=== PATIENT | male | born 1995 | race Two or more races ===

== ENCOUNTER 2023-06-15 12:47 | Outpatient (AMB) | payer OTHER, SELFPAY ==
--- NOTE | 2023-06-15 13:06 | MHC.OFFVIS ---
Intake Intake Visit Reasons: possible stone/hematuria Intake Note: New Patient presents for initial visit for possible stone/hematuria Urology Medications: none Blood Thinner: none Personnel Research Psychologist Required: No Accompanied by: Unknown Allergies No Known Allergies Allergy (Verified 06/17/23 16:53) Medication List - Last Reconciled 06/17/23 by JUSTIN Rondon lisinopril 5 mg PO DAILY testosterone 40.5 mg topical QAM HPI HPI Comments History of Present Illness Details Kam is a very pleasant 28-year-old XX male with no gender affirming genital surgery who was accompanied by his significant other at today's office visit. He has a past medical history of hypertension. He presents to the office today as a new patient for gross hematuria. In discussion with the patient today reports noting over the last 2 years to be having intermittent episodes of right-sided flank pain with episodes of dark urine. He reports having followed up with PCP and multiple hospital visits for this exact issue at which time bedside renal ultrasounds were performed noting no nephrolithiasis. When asked he denies smoking cigarettes/nicotine and or any known chemical exposure. However, does report smoking recreational marijuana daily. Discussed at length potential causes for gross hematuria. Discussed further workup with CT urogram, urine cytology, and in office cystoscopy for further assessment evaluation. Discussed risks and benefits of surveillance monitoring verses further workup. In office urinalysis with 3+ microscopic hematuria as well as proteinuria. When asked he denies urinary urgency, urinary frequency, incontinence, nocturia, hematuria, dysuria, foul smelling urine, changes to urinary stream, flank pain, fever, and or chills. He is happy with his current voiding parameters. [facility] Medical History (Updated 06/17/23 @ 17:00 by JUSTIN Rondon) History of kidney stones Hypertension Review of Systems Const Reports as per HPI Eyes Reports no additional complaints ENT Reports no additional complaints Card Reports as per HPI Resp Reports no additional complaints GI Reports no additional complaints Reports as per HPI Musc Reports no additional complaints Neuro Reports no additional complaints Psych Reports no additional complaints Endo Reports no additional complaints Josesito/Lymph Reports no additional complaints Aller/Immun Reports no additional complaints Physical Exam Const General: cooperative, healthy appearing, comfortable, no acute distress, well developed, alert and awake Nutritional Appearance: overweight Orientation/consciousness: patient oriented x3 Limitations: no limitations HEENT Head: Yes normal to inspection, Yes normocephalic and Yes atraumatic Ears: hearing grossly normal bilaterally Eyes General: appearance normal, both eyes and all related structures Neck Neck: Yes normal visual inspection and Yes trachea midline Chest Chest palpation & inspection: normal inspection of the chest Resp Effort & Inspection: normal respiratory effort and able to speak in complete sentences Cardio Rate: regular rate GI Inspection: Yes normal to inspection General: Yes no CVA tenderness Back/Spine/Pelvis Back: no CVA tenderness Skin General skin exam: no rashes or lesions noted Neuro General: patient oriented x3 Extrem General: Yes normal to inspection Psych Appearance: grossly normal and well kempt Mental Status: mental status grossly normal Speech and movement: Normal speech and movement present and Clear speech present Affect: normal affect Attitude: cooperative Thought process: Normal thought process present Thought content: Normal thought content present Insight: Fair insight present (Psych) Judgement: Fair judgement present (Psych) Results AMB Urinalysis, Automated UA Leukoctes 0 Vince/uL Last Edit by [employer] on 06/15/23 13:35 UA Nitrite Negative Last Edit by [employer] on 06/15/23 13:35 UA Urobilinogen 0.2 mg/dL Last Edit by [employer] on 06/15/23 13:35 UA Protein 300 mg/dL Last Edit by [employer] on 06/15/23 13:35 UA pH 5.5 Last Edit by [employer] on 06/15/23 13:35 UA Blood 200 Beau/uL Last Edit by [employer] on 06/15/23 13:35 UA Specific Baisden 1.025 Last Edit by [employer] on 06/15/23 13:35 UA Ketone Negative Last Edit by [employer] on 06/15/23 13:35 UA Bilirubin 0 mg/dL Last Edit by [employer] on 06/15/23 13:35 UA Glucose 0 mg/dL Last Edit by [employer] on 06/15/23 13:35 Results Reviewed Results Reviewed: Laboratory Last Values Urine pH (Auto) 5.5 06/15/23 13:13 Specific [place] (Auto) 1.025 06/15/23 13:13 Urine Protein (Auto) 300 mg/dL 06/15/23 13:13 Glucose (UA)(Auto) 0 mg/dL 06/15/23 13:13 Urine Ketones (Auto) Negative 06/15/23 13:13 Urine Blood (Auto) 200 Beau/uL 06/15/23 13:13 Urine Nitrite (Auto) Negative 06/15/23 13:13 Urine Bilirubin (Auto) 0 mg/dL 06/15/23 13:13 Urine Urobilinogen (Auto) 0.2 mg/dL 06/15/23 13:13 Leukocyte Esterase (Auto) 0 Vince/uL 06/15/23 13:13 Assessment & Plan Assessment & Plan (1) Proteinuria: Code(s): R80.9 - Proteinuria, unspecified (2) Gross hematuria: Code(s): R31.0 - Gross hematuria Plan In office urinalysis results reviewed with the patient today; as noted above; will send for urine cytology. Will obtain CT urogram for further assessment evaluation. BUN and creatinine ordered for imaging. Discussed at length potential causes of gross hematuria. Will refer to Nephrology due to 3+ proteinuria for further assessment evaluation. Discussed at length further gross hematuria workup versus surveillance monitoring. Discussed and stressed the importance of limiting/quitting recreational marijuana for overall health and well-being. Discussed, educated, encouraged on the importance of drinking plenty of water daily. Follow-up in office cystoscopy for further assessment evaluation with labs and imaging to be completed prior; or sooner with any issues, concerns, and or questions. Orders: Orders CT urogram 06/15/23 R31.0 - Gross hematuria Blood Urea Nitrogen 06/15/23 R39.15 - Urgency of urination Urine Cytology 06/15/23 R80.9 - Proteinuria, unspecified AMB Urinalysis Automated 06/15/23 Z13.9 - Encounter for screening, unspecified Creatinine 06/15/23 R39.15 - Urgency of urination Referrals Nephrology Referral R80.9 - Proteinuria, unspecified Patient Instructions: The patient had an opportunity to ask questions regarding the treatment plan. All questions were answered. Physical exam, labs, and imaging were discussed and reviewed in detail. As well as risks, benefits, and discussion of treatment choices. No major barriers to understanding were identified. The patient expressed understanding and agreement with the above treatment plan. The patient was made aware they should contact our office by phone for worsening of their current condition, the appearance of new symptoms, or with any questions or concerns. Compliance is encouraged with any medications and follow up testing that is ordered. It is a privilege to be allowed the opportunity to participate in? your urological care.? Again, if you have any questions or concerns If you have any questions or concerns please do not hesitate to contact me. The office is [phone]. This note is constructed using voice recognition software. While every effort has been made to ensure accuracy gas station attendant errors may have been included. Yours sincerely, JUSTIN Rondon Coding Level of Care Code New Pt Level 4 (82150) Diagnoses Proteinuria R80.9 Gross hematuria R31.0
== END 2023-06-15 13:53 | disposition home or self-care (01) ==
PROVIDERS: Visit Provider Nurse Practitioner Family
DX: R80.9 Proteinuria, unspecified (principal); R31.0 Gross hematuria
CPT/HCPCS: 99204

== ENCOUNTER 2023-06-15 12:47 | Outpatient (REF) | payer OTHER, SELFPAY | END 2023-06-15 12:48 | disposition home or self-care (01) | LOC: HO.LAB 12:47 | PROVIDERS: Visit Provider Nurse Practitioner Family | DX: R39.15 Urgency of urination (principal); R80.9 Proteinuria, unspecified; R31.0 Gross hematuria | CPT/HCPCS: 36415; 81003; 82565; 84520 ==

== ENCOUNTER 2023-06-15 14:35 | Outpatient (REF) | payer OTHER, SELFPAY | END 2023-06-15 14:36 | disposition home or self-care (01) | LOC: HO.LNP 14:35 | PROVIDERS: Visit Provider Nurse Practitioner Family | DX: R80.9 Proteinuria, unspecified (principal) | CPT/HCPCS: 88112 ==

== ENCOUNTER 2023-07-05 11:09 | Outpatient (AMB) | payer OTHER, SELFPAY ==
--- NOTE | 2023-07-05 11:09 | HO.NEPHOV ---
HPI HPI Comments History of Present Illness Details Kam is 28-year -old , with no gen jeremías affirming vanessa césar surgery who wa s accompanied by h is significant oth er at today's offi ce visit. REferr ed for HEmaturia HE has had back pa rustam nd seen in ED Suspected to have kidney stone. No s tones seen in [facility] Seen by Urology fo r hematuria Schedu led for a CT Urogr am He has a hist ory of hypertensio n since 2017; HE i son Lisinopril 5 mg QD He is on T estosterone. ove r the last 2 years to be having inte rmittent episodes of right-sided fla nk pain with episo ezio of dark urine. He reports having followed up with PCP and multiple h ospital visits for this exact issue at which time beds joy renal ultrasou nds were performed noting no nephrol ithiasis. When ask ed he denies smoki ng cigarettes/leonard aurelio and or any kn own chemical expos ure. However, does report smoking re creational marijua na daily. [facility] Medical History (Updated 06/17/23 @ 17:00 [facility] History of kidney stones Hypertension Family History (Updated 07/05/23 @ 11:13 by Eva Spangler) Mother Heart disease Diabetes Maternal Grandfather Diabetes Heart disease Kidney disease Social History Alcohol intake: never Patient Tobacco Use Status: Never used Tobacco Vital Signs 07/05/23 11:10 Height 5 ft 9 in Weight 269 lb BMI 39.7 BP 130/82 Blood Pressure Location Lt brachial Position Sitting Pulse 77 Pulse Source Pulse Oximeter Pulse Oximetry (%) 97 Oxygen Delivery Method Room Air Physical Exam Vital Signs: Last Vital Signs Pulse 77 07/05/23 11:10 BP 130/82 07/05/23 11:10 Pulse Ox 97 07/05/23 11:10 Oxygen Delivery Method Room Air 07/05/23 11:10 BMI result Body Mass Index 39.7 Const General: comfortable Nutritional Appearance: well nourished Orientation/consciousness: patient oriented x3 HEENT Head: No normal to inspection Mouth: moist mucous membranes Neck Neck: Yes supple and Yes no JVD Resp Auscultation: clear to auscultation bilaterally, no rales and rub present Cardio Jugular venous distension: no JVD Palpation: no palpable S3 and no palpable S4 Heart sounds: no rubs GI Palpation (GI): Soft to palpation and nontender Percussion: No Fluid wave present General: Yes no CVA tenderness Back/Spine/Pelvis Back: no CVA tenderness Skin General skin exam: no rashes or lesions noted Neuro General: patient oriented x3 Extrem General: Yes no pedal edema and No clubbing Assessment & Plan Assessment & Plan (1) Gross hematuria: Code(s): R31.0 - Gross hematuria (2) Proteinuria: Code(s): R80.9 - Proteinuria, unspecified Plan Kam is 28 yrsold with Hematuria and some proteinuria with normal renal function Mild HTN in a setting of using Testosterone and obesity Work up ordered as below r/o GN Await CT scan If Ct is negative, need to look for other causes for back pain Orders: Orders Oxalate, 24 Hr Today R31.0 - Gross hematuria, R80.9 - Proteinuria, unspecified Calcium, 24 Hr Ur Today R31.0 - Gross hematuria, R80.9 - Proteinuria, unspecified Citric Acid 24hr Urine Today R31.0 - Gross hematuria, R80.9 - Proteinuria, unspecified Total Protein Urine Random Today R31.0 - Gross hematuria, R80.9 - Proteinuria, unspecified Vitamin D 25-OH (D2 and D3) Today R31.0 - Gross hematuria, R80.9 - Proteinuria, unspecified Protein Electrophoresis, Serum Today R31.0 - Gross hematuria, R80.9 - Proteinuria, unspecified Complement C3 Today R31.0 - Gross hematuria, R80.9 - Proteinuria, unspecified Anti Glomerular Basement Memb Today R31.0 - Gross hematuria, R80.9 - Proteinuria, unspecified CONNOR Reflex Titer and Pattern Today R31.0 - Gross hematuria, R80.9 - Proteinuria, unspecified Sodium, 24Hr Urine Group Today R31.0 - Gross hematuria, R80.9 - Proteinuria, unspecified Creatinine, 24 Hr Group Today R31.0 - Gross hematuria, R80.9 - Proteinuria, unspecified Uric Acid, 24Hr Urine Group Today R31.0 - Gross hematuria, R80.9 - Proteinuria, unspecified UA and rflx microscopic Today R31.0 - Gross hematuria, R80.9 - Proteinuria, unspecified Creatinine Urine Today R31.0 - Gross hematuria, R80.9 - Proteinuria, unspecified Complement C4 Today R31.0 - Gross hematuria, R80.9 - Proteinuria, unspecified Neutrophil Cytoplasma Ab Today R31.0 - Gross hematuria, R80.9 - Proteinuria, unspecified Coding Level of Care Code New Pt Level 4 (55200) Diagnoses Gross hematuria R31.0 Proteinuria R80.9 Results Reviewed Nephrology Results: BUN 14 mg/dL (9-16) 06/15/23 Creatinine 0.77 mg/dL (0.5-1.4) 06/15/23
[2023-07-05 11:10] VITALS: BP 130/82; PULSE 77; O2SAT 97; BMI 39.7
== END 2023-07-05 11:35 | disposition home or self-care (01) ==
PROVIDERS: Visit Provider Internal Medicine Hypertension Specialist
DX: R31.0 Gross hematuria (principal); R80.9 Proteinuria, unspecified
CPT/HCPCS: 99204

== ENCOUNTER → 2023-07-05 11:09 | Outpatient (BNVA) | payer OTHER, SELFPAY | PROVIDERS: Visit Provider Internal Medicine Hypertension Specialist ==

== ENCOUNTER 2023-07-05 11:53 | Outpatient (REF) | payer OTHER, SELFPAY ==
[2023-07-05 13:54] LABS: Appearance Urine Clear; Color Urine Yellow; Glucose Urine UA Negative (Negative); Leukocyte Esterase Urine Negative (Negative); Nitrite Urine Negative (Negative); PH 6.5 (5.0-9.0); Specific Gravity - Urine 1.025 (1.005-1.025); UMIC TRIGGER UA YES; Urine Blood Large (3+) (Negative); Urine Ketones Negative (Negative); Urine Protein 300 (3+) mg/dL (Neg-Trace)
[2023-07-05 14:00] LABS: Bacteria Urine None Seen (None Seen); Hyaline Casts Urine 0-2 /LPF (0-2); RBC Urine >20 /HPF (0-2); Squamous Epithelial Cell Urine 0-2 /HPF (0-2)
[2023-07-05 14:45] LABS: Creatinine Urine 123.44 mg/dL
[2023-07-05 15:55] LABS: Total Protein Urine Random 246 mg/dL (<12)
[2023-07-06 15:19] LABS: Prot Elec - Albumin 3.8 g/dL (3.8-4.8); Prot Elec - Alpha1 0.3 g/dL (0.2-0.3); Prot Elec - Alpha2 0.8 g/dL (0.5-0.9); Prot Elec - Beta 1 0.4 g/dL (0.4-0.6); Prot Elec - Beta 2 0.4 g/dL (0.2-0.5); Prot Elec - Gamma 0.9 g/dL (0.8-1.7); Prot Elec - Total Protein 6.5 g/dL (6.1-8.1)
[2023-07-06 19:23] LABS: Anti Glomerular Basement Memb <1.0 AI
[2023-07-06 22:38] LABS: Complement C3 155 mg/dL (82-185)
[2023-07-09 14:13] LABS: Vitamin D 25-OH, D2 <4 ng/mL; Vitamin D 25-OH, D3 11 ng/mL; Vitamin D 25-OH, Total 11 ng/mL (30-100)
[2023-07-10 12:23] LABS: Neutrophil Cyto Ab Screen NEGATIVE (NEGATIVE)
[2023-07-11 11:03] LABS: Anti Nuclear Antibody Screen NEGATIVE (NEGATIVE)
== END 2023-07-05 11:54 | disposition home or self-care (01) ==
LOC: HO.10HDL 11:53
PROVIDERS: Visit Provider Internal Medicine Hypertension Specialist
DX: R31.0 Gross hematuria (principal); R80.9 Proteinuria, unspecified
CPT/HCPCS: 36415; 81001; 82306; 82570; 83520; 84156; 84165; 86036; 86038; 86160

== ENCOUNTER 2023-07-19 08:49 | Outpatient (REF) | payer OTHER, SELFPAY ==
[2023-07-19 10:38] LABS: Blood Urea Nitrogen 15 mg/dL (9-16); Estimated Glomerular Filt Rate > 60
== END 2023-07-19 08:50 | disposition home or self-care (01) ==
LOC: HO.LAB 08:49
PROVIDERS: PCP Registered Nurse; Visit Provider Nurse Practitioner Family
DX: R80.9 Proteinuria, unspecified (principal)
CPT/HCPCS: 36415; 82565; 84520

== ENCOUNTER 2023-07-20 08:17 | Outpatient (REF) | payer OTHER, SELFPAY ==
--- NOTE | ~2023-07-20 | CT_ITS ---
EXAMINATION: CT ABDOMEN AND PELVIS WITHOUT AND WITH CONTRAST CLINICAL INFORMATION: Gross hematuria. COMPARISON: None available. TECHNIQUE: Noncontrast CT of the abdomen and pelvis is performed followed by split bolus contrast-enhanced images using 85 mL Omnipaque 350 contrast.? Postcontrast imaging is performed during the combined nephrogram and excretion phase. Sagittal and coronal reformatted images were obtained on the technologist's workstation for both the precontrast and postcontrast phases. This CT examination was performed using dose optimization techniques as appropriate, variously including the following: *Automated exposure control *Adjustment of mA and/or kV according to patient size (this includes techniques or standardized protocols for targeted exams where dose is matched to indication/reason for exam; i.e. extremities or head) *Use of iterative reconstruction technique DLP: 1216 mGy-cm FINDINGS: LUNG BASES: The visualized lung bases are unremarkable. LIVER, GALLBLADDER, AND BILIARY TREE: The liver is normal in size, shape and generally diminished in attenuation. No focal hepatic lesion or biliary ductal dilatation is present. The gallbladder is unremarkable with no evidence of radiopaque gallstones, gallbladder wall thickening, or obvious pericholecystic inflammatory changes. PANCREAS: Unremarkable. SPLEEN: Unremarkable. ADRENAL GLANDS: Unremarkable. KIDNEYS AND URETERS: The kidneys are normal in size, shape, and attenuation. No hydronephrosis, hydroureter, or calculi seen. No perinephric stranding. BLADDER: Bilateral ureteric jets are noted. No nodule, mass or calculus is seen. GASTROINTESTINAL TRACT: There is mild diverticulosis, without acute diverticulitis. No bowel obstruction, free intraperitoneal air or abscess is seen. There is no focal bowel wall thickening. The vermiform appendix appears normal. ABDOMINAL WALL: No significant hernia is appreciated. LYMPH NODES: Normal. VASCULAR: Unremarkable. PELVIC VISCERA: The uterus and adnexa are unremarkable. OSSEUS STRUCTURES: Unremarkable. CT/CT urogram IMPRESSION: 1. No urinary mass, calculus or obstruction is seen. 2. There is mild diverticulosis. 3. There is hepatic steatosis.
[2023-07-20] MEDS: iohexoL 350 MG/ML 100 ML INFUS..BTL IV (09:22)
== END 2023-07-20 08:18 | disposition home or self-care (01) ==
LOC: HO.CT 08:17
PROVIDERS: PCP Registered Nurse; Visit Provider Nurse Practitioner Family
DX: R31.0 Gross hematuria (principal)
CPT/HCPCS: 74178; Q9967

== ENCOUNTER 2023-08-06 09:24 | Outpatient (AMB) | payer OTHER, SELFPAY ==
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
== END 2023-08-06 10:47 | disposition home or self-care (01) ==
PROVIDERS: Visit Provider Urology
DX: R31.0 Gross hematuria (principal); R80.9 Proteinuria, unspecified
CPT/HCPCS: 52000

== ENCOUNTER → 2023-08-06 09:24 | Outpatient (BNVA) | payer OTHER, SELFPAY | PROVIDERS: Visit Provider Urology | DX: R31.0 Gross hematuria (principal); R80.9 Proteinuria, unspecified | CPT/HCPCS: 52000; 81003 ==

== ENCOUNTER 2023-08-09 08:55 | Outpatient (REF) | payer OTHER, SELFPAY ==
[2023-08-09 16:03] LABS: Total Volume 24 Hour Urine 3500 mL
[2023-08-09 16:05] LABS: Creatinine, mg/dL 57.44
[2023-08-09 16:13] LABS: Creatinine, mg/dL 56.15
[2023-08-09 16:20] LABS: Total Volume 24 Hour Urine 3500 mL
[2023-08-11 16:58] LABS: Calcium, 24 Hr Urine 53 mg/24 h; Calcium/Creatinine Ratio 24 mg/g creat (30-210); Creatinine 24Hr Urine 2.21 g/24 h (0.50-2.15)
[2023-08-15 03:14] LABS: 24hr Urine Total Volume 3500 mL; Creatinine, 24U 2.21 g/24 h (0.50-2.15); Oxalic Acid 24 Urine 46.1 mg/24 h (3.6-38.0)
[2023-08-15 21:23] LABS: Citric Acid, 24hr Urine 585 mg/24 h (100-1300); Citric Acid/Creat Ratio 24U 266 mg/g creat (60-660)
== END 2023-08-09 08:56 | disposition home or self-care (01) ==
LOC: HO.10HDLNP 08:55
PROVIDERS: Visit Provider Internal Medicine Hypertension Specialist
DX: R31.0 Gross hematuria (principal); R80.9 Proteinuria, unspecified
CPT/HCPCS: 82340; 82507; 83945; 84300; 84560

== ENCOUNTER 2023-08-13 14:30 | Outpatient (REF) | payer OTHER, SELFPAY ==
[2023-08-13 16:04] LABS: Estimated Average Glucose 105 mg/dL; Hemoglobin A1c % 5.3 % (<6.0)
[2023-08-13 16:14] LABS: Appearance Urine Clear; Color Urine Yellow; Glucose Urine UA Negative (Negative); Leukocyte Esterase Urine Negative (Negative); Nitrite Urine Negative (Negative); PH 5.5 (5.0-9.0); Specific Gravity - Urine >= 1.030 (1.005-1.025); UMIC TRIGGER UA YES; Urine Blood Large (3+) (Negative); Urine Ketones Negative (Negative); Urine Protein >=1000 (4+) mg/dL (Neg-Trace)
[2023-08-13 16:30] LABS: Calcium 8.9 mg/dL (8.4-10.2); Estimated Glomerular Filt Rate > 60; Uric Acid 8.3 mg/dL (3.4-7.0)
[2023-08-13 17:25] LABS: Bacteria Urine None Seen (None Seen); Squamous Epithelial Cell Urine 0-2 /HPF (0-2); WBC Urine 0-5 /HPF (0-5)
== END 2023-08-13 14:31 | disposition home or self-care (01) ==
LOC: HO.LAB 14:30
PROVIDERS: Visit Provider Internal Medicine Hypertension Specialist
DX: R31.0 Gross hematuria (principal); R80.9 Proteinuria, unspecified
CPT/HCPCS: 36415; 81001; 81003; 82310; 82565; 83036; 84100; 84550

== ENCOUNTER 2023-08-13 14:30 | Outpatient (AMB) | payer OTHER, SELFPAY ==
[2023-08-13 14:33] VITALS: BP 150/100; PULSE 78; O2SAT 97; BMI 38.4
--- NOTE | 2023-08-13 14:33 | HO.NEPHOV ---
HPI HPI Comments History of Present Illness Details Kam is 28-year -old , with no gen jeremías affirming vanessa césar surgery who wa s accompanied by h is significant oth er at today's offi ce visit. Referr ed for HEmaturia He has had back pa in and seen in ED Suspected to have kidney stone. No s tones seen in [facility] Seen by Urology fo r hematuria Schedu led for a CT Urogr am He has a hist ory of hypertensio n since 2017; HE i son Lisinopril 5 mg QD He is on T estosterone. ove r the last 2 years to be having inte rmittent episodes of right-sided fla nk pain with episo ezio of dark urine. He reports having followed up with PCP and multiple h ospital visits for this exact issue at which time beds joy renal ultrasou nds were performed noting no nephrol ithiasis. When ask ed he denies smoki ng cigarettes/leonard aurelio and or any kn own chemical expos ure. However, does report smoking re creational marijua na daily. 08/13/[address] urogram and Cystoscopy Both were reportedly normal Still has hematuria on and off Recent urine uric acid level is elevated at 850 PFSH Medical History History of kidney stones Hypertension Family History Mother Heart disease Diabetes Maternal Grandfather Diabetes Heart disease Kidney disease Social History Alcohol intake: never Patient Tobacco Use Status: Never used Tobacco Vital Signs 08/13/23 14:33 Height 5 ft 9 in Weight 260 lb BMI 38.4 BP 150/100 H Blood Pressure Location Rt brachial Position Sitting Pulse 78 Pulse Source Pulse Oximeter Pulse Oximetry (%) 97 Oxygen Delivery Method Room Air Physical Exam Vital Signs: Last Vital Signs Pulse 78 08/13/23 14:33 BP 150/100 H 08/13/23 14:33 Pulse Ox 97 08/13/23 14:33 Oxygen Delivery Method Room Air 08/13/23 14:33 BMI result Body Mass Index 38.4 Const General: comfortable Nutritional Appearance: well nourished Orientation/consciousness: patient oriented x3 HEENT Head: No normal to inspection Mouth: moist mucous membranes Neck Neck: Yes supple and Yes no JVD Resp Auscultation: clear to auscultation bilaterally, no rales and rub present Cardio Jugular venous distension: no JVD Palpation: no palpable S3 and no palpable S4 Heart sounds: no rubs GI Palpation (GI): Soft to palpation and nontender Percussion: No Fluid wave present General: Yes no CVA tenderness Back/Spine/Pelvis Back: no CVA tenderness Skin General skin exam: no rashes or lesions noted Neuro General: patient oriented x3 Extrem General: Yes no pedal edema and No clubbing Assessment & Plan Assessment & Plan (1) Gross hematuria: Code(s): R31.0 - Gross hematuria (2) Proteinuria: Code(s): R80.9 - Proteinuria, unspecified Plan Kam is 28 yr old with hematuria nd protienuria and normal renal function No urological causes have been established He has uricoseuria.Does hehave uric acid stones? DDX includes IgA nephropathy/ TBM disease vs others Will obtain Renal sonogram Serum uric acid CPK levels May need a kidney biopsy if all above are unequivocal Orders: Orders Uric Acid Today R31.0 - Gross hematuria, R80.9 - Proteinuria, unspecified Phosphorus Today R31.0 - Gross hematuria, R80.9 - Proteinuria, unspecified Calcium Today R31.0 - Gross hematuria, R80.9 - Proteinuria, unspecified Hemoglobin A1c Today R31.0 - Gross hematuria US renal BI Today R31.0 - Gross hematuria Creatinine Today R31.0 - Gross hematuria Medications: New cholecalciferol (vitamin D3) 25 mcg PO DAILY 100 caps 1RF Coding Level of Care Code Est Pt Level 4 (47589) Diagnoses Gross hematuria R31.0 Proteinuria R80.9 Results Reviewed Nephrology Results: BUN 15 mg/dL (9-16) 07/19/23 Creatinine 0.78 mg/dL (0.5-1.4) 07/19/23 Calcium Pending 08/13/23 Phosphorus Pending 08/13/23 Urine Protein 300 (3+) mg/dL (Neg-Trace) H 07/05/23 Urine Creatinine 123.44 mg/dL 07/05/23
== END 2023-08-13 15:06 | disposition home or self-care (01) ==
PROVIDERS: Visit Provider Internal Medicine Hypertension Specialist
DX: R31.0 Gross hematuria (principal); R80.9 Proteinuria, unspecified
CPT/HCPCS: 99214

== ENCOUNTER 2023-09-05 08:05 | Outpatient (REF) | payer OTHER, SELFPAY ==
--- NOTE | ~2023-09-05 | US_ITS ---
EXAMINATION: US RETROPERITONEAL LIMITED (RENAL ONLY) CLINICAL INFORMATION: Gross hematuria. COMPARISON: CT abdomen and pelvis 07/20/2023. TECHNIQUE: Real-time imaging of the kidneys. FINDINGS: RIGHT KIDNEY: 13.1 x 5.3 x 6.3 cm (SAG x AP x TRV). The kidney is normal in size, contour, and echogenicity. Renal cortical thickness is normal. No calculi or focal parenchymal lesions. No hydronephrosis. LEFT KIDNEY: 12.7 x 5.3 x 5.5 cm (SAG x AP x TRV). The kidney is normal in size, contour, and echogenicity. Renal cortical thickness is normal. No calculi or focal parenchymal lesions. No hydronephrosis. Incidental note is made of hepatic steatosis. US/US renal BI IMPRESSION: 1. Normal appearance of the kidneys. 2. Incidental note is made of hepatic steatosis.
== END 2023-09-05 08:06 | disposition home or self-care (01) ==
LOC: HO.US 08:05
PROVIDERS: PCP Registered Nurse; Visit Provider Internal Medicine Hypertension Specialist
DX: R31.0 Gross hematuria (principal)
CPT/HCPCS: 76775

== ENCOUNTER 2023-09-27 10:33 | Outpatient (AMB) | payer OTHER, SELFPAY ==
[2023-09-27 10:36] VITALS: BP 138/84; PULSE 72; O2SAT 98; BMI 38.8
--- NOTE | 2023-09-27 10:36 | HO.NEPHOV ---
Vital Signs 09/27/23 10:36 Height 5 ft 9 in Weight 263 lb BMI 38.8 BP 138/84 Blood Pressure Location Rt brachial Position Sitting Pulse 72 Pulse Source Pulse Oximeter Pulse Oximetry (%) 98 Oxygen Delivery Method Room Air Intake Visit Reasons: Proteinuria/ LVM Railcar Switcher Required: No Accompanied by: Spouse Allergies apple Allergy (Verified 09/27/23 10:38) Unknown pear Allergy (Verified 09/27/23 10:38) Unknown plum Allergy (Verified 09/27/23 10:38) Unknown HPI Comments Details: Kam is 28-year-old , with no gender affirming genital surgery who was accompanied by his significant other at today's office visit. Referred for Hematuria He has had back pain and seen in ED Suspected to have kidney stone. No stones seen in [facility] Seen by Urology for hematuria Scheduled for a CT Urogram He has a history of hypertension since 2017; HE i son Lisinopril 5 mg QD He is on Testosterone. over the last 2 years to be having intermittent episodes of right-sided flank pain with episodes of dark urine. He reports having followed up with PCP and multiple hospital visits for this exact issue at which time bedside renal ultrasounds were performed noting no nephrolithiasis. When asked he denies smoking cigarettes/nicotine and or any known chemical exposure. However, does report smoking recreational marijuana daily. [facility] Medical History History of kidney stones Hypertension Family History Mother Heart disease Diabetes Maternal Grandfather Diabetes Heart disease Kidney disease Social History Alcohol intake: never Patient Tobacco Use Status: Never used Tobacco Physical Exam Vital Signs: Last Vital Signs Pulse 72 09/27/23 10:36 BP 138/84 09/27/23 10:36 Pulse Ox 98 09/27/23 10:36 Oxygen Delivery Method Room Air 09/27/23 10:36 BMI result Body Mass Index 38.8 Const General: comfortable Nutritional Appearance: well nourished Orientation/consciousness: patient oriented x3 HEENT Head: No normal to inspection Mouth: moist mucous membranes Neck Neck: Yes supple and Yes no JVD Resp Auscultation: clear to auscultation bilaterally, no rales and rub present Cardio Jugular venous distension: no JVD Palpation: no palpable S3 and no palpable S4 Heart sounds: no rubs GI Palpation (GI): Soft to palpation and nontender Percussion: No Fluid wave present General: Yes no CVA tenderness Back/Spine/Pelvis Back: no CVA tenderness Skin General skin exam: no rashes or lesions noted Neuro General: patient oriented x3 Extrem General: Yes no pedal edema and No clubbing Results Reviewed Nephrology Results: BUN 15 mg/dL (9-16) 07/19/23 Creatinine 0.77 mg/dL (0.5-1.4) 08/13/23 Calcium 8.9 mg/dL (8.4-10.2) 08/13/23 Phosphorus 3.0 mg/dL (2.7-4.5) 08/13/23 Urine Protein >=1000 (4+) mg/dL (Neg-Trace) H 08/13/23 Urine Creatinine 123.44 mg/dL 07/05/23 Renal US 09/05/23 Assessment & Plan Assessment & Plan (1) Gross hematuria: Code(s): R31.0 - Gross hematuria Category: Medical (2) Proteinuria: Code(s): R80.9 - Proteinuria, unspecified Category: Medical Plan Kam is 28 yr old with hematuria nd protienuria and normal renal function No urological causes have been established He has uricoseuria.Does he have uric acid stones? DDX includes IgA nephropathy/ TBM disease vs others Renal sonogram was unremarkable Given the degree of proteinuria with persistent hematuria I will arrange for kidney biopsy. Orders: Orders Basic Metabolic Panel 4 Weeks R31.0 - Gross hematuria, R80.9 - Proteinuria, unspecified Creatinine Urine 4 Weeks N05.9 - Unspecified nephritic syndrome with unspecified morphologic changes, R31.0 - Gross hematuria, R80.9 - Proteinuria, unspecified Total Protein Urine Random 4 Weeks R31.0 - Gross hematuria, R80.9 - Proteinuria, unspecified Prothrombin Time INR 4 Weeks R31.0 - Gross hematuria, R80.9 - Proteinuria, unspecified CT biopsy renal RT Today R31.0 - Gross hematuria, R80.9 - Proteinuria, unspecified
== END 2023-09-27 11:02 | disposition home or self-care (01) ==
PROVIDERS: Visit Provider Internal Medicine Hypertension Specialist
DX: R31.0 Gross hematuria (principal); R80.9 Proteinuria, unspecified
CPT/HCPCS: 99214

== ENCOUNTER → 2023-09-27 10:33 | Outpatient (BNVA) | payer OTHER, SELFPAY | PROVIDERS: Visit Provider Internal Medicine Hypertension Specialist ==

== ENCOUNTER → 2023-11-15 08:36 | Outpatient (BNV) | payer OTHER, SELFPAY | PROVIDERS: PCP Registered Nurse; Visit Provider Physician Assistant Surgical | DX: N99.820 Postprocedural hemorrhage of a genitourinary system organ or structure following a genitourinary system procedure (principal) | CPT/HCPCS: 36253; 50200; 76937; 77012; 99152; 99499 ==

== ENCOUNTER 2023-11-15 16:27 | Observation (INO) | payer OTHER, SELFPAY ==
[2023-11-15] VITALS (23 sets, daily range): BP systolic 108–146; BP diastolic 56–81; PULSE 60–90; RESP 16–24; TEMP 36.1–36.9; O2SAT 94–97; BMI 38.1
--- NOTE | ~2023-11-15 | IR_ITS ---
PROCEDURE: Renal Angiography HISTORY/INDICATION: Bleed status post left renal biopsy LATERALITY: Left ACUITY: Acute OPERATORS: Ferny Wilks MD. ANESTHESIA/SEDATION Level of anesthesia: Moderate Sedation. Lidocaine 2% was used for local anesthesia. Medications: Fentanyl CONTRAST: mL of Omnipaque 300 FLUOROSCOPY TIME: 2.5 minutes RADIATION EXPOSURE: 720 mGy PROCEDURE/FINDINGS: Informed consent was obtained following a discussion of the risks and benefits approximately via telephone. The patient was placed supine the fluoroscopy table and the bilateral groins were sterilely prepped and draped. Preliminary ultrasound demonstrates wide patency of the right common femoral artery. Following the administration of 1% lidocaine for local anesthesia, the right common femoral artery was accessed with a 21-gauge micropuncture needle under direct ultrasound guidance with permanent recordings. A 5 [place] sheath was placed. Angiogram through the sheath demonstrates the puncture site to be above the bifurcation with flow down the leg. The left renal artery was then selected utilizing a 5 [place] Cobra catheter. Left renal angiograms were performed in multiple obliquities. There is mild deformity of the lateral aspect of the capsule in concordance with known hematoma. There is no evidence of active extravasation or other arterial abnormality. Given no active abnormality, there was no indication for embolization. We therefore elected to terminate the procedure. The catheter and sheath were removed and hemostasis was achieved with manual compression. A sterile dressing was applied. Patient tolerated the procedure well. COMPLICATIONS: None immediately EBL: Minimal IR/IR angio renal LT IMPRESSION: Left renal angiogram. No evidence for active arterial extravasation or other arterial abnormalities. Recommendation: Keep right leg flat for 6 hours. Monitor right groin for hematoma. Admit for overnight observation and pain control.
--- NOTE | ~2023-11-15 | CT_ITS ---
EXAMINATION: CT ABDOMEN AND PELVIS WITHOUT CONTRAST CLINICAL INFORMATION: Severe pain of the left renal biopsy COMPARISON: Biopsy performed today. CT scan before procedure TECHNIQUE: Multidetector volumetric imaging was performed from the superior aspect of the liver through the pubic symphysis. Sagittal and coronal reformatted images were obtained on the technologist's workstation. This CT examination was performed using dose optimization techniques as appropriate, variously including the following: *Automated exposure control *Adjustment of mA and/or kV according to patient size (this includes techniques or standardized protocols for targeted exams where dose is matched to indication/reason for exam; i.e. extremities or head) *Use of iterative reconstruction technique DLP: 772 mGy-cm FINDINGS: LUNG BASES: The visualized lung bases are unremarkable. LIVER, GALLBLADDER, AND BILIARY TREE: Liver is of low attenuation due to hepatic steatosis without intrahepatic masses or ductal dilatation seen and enlarged, with the right lobe measured more than 22 cm. Gallbladder is unremarkable. PANCREAS: Unremarkable. SPLEEN: Spleen is enlarged. ADRENAL GLANDS: Unremarkable. KIDNEYS AND URETERS: Right kidney is unremarkable. Left kidney enlarged in comparison to previous study with. Extending consistent with recent procedure most likely due to hematoma. The perinephric stranding is surrounding lower and posterior kidney and abating are left psoas muscle. The perinephric stranding measured approximately 6.3 x 3.7 cm. BLADDER: Unremarkable. GASTROINTESTINAL TRACT: The small and large bowel are unremarkable. The appendix is unremarkable. ABDOMINAL WALL: No significant hernia is appreciated. LYMPH NODES: Normal. VASCULAR: Unremarkable. PELVIC VISCERA: Unremarkable. OSSEOUS STRUCTURES: Unremarkable. CT/CT abdomen pelvis wo IV con IMPRESSION: Perinephric hematoma Hepatic steatosis, hepatosplenomegaly. Fleischner guidelines were followed.
--- NOTE | ~2023-11-15 | CT_ITS ---
28-year-old man with hematuria and proteinuria. Nephrology requests a renal biopsy. PROCEDURES: 1. Limited preprocedure CT of the abdomen. Permanent images saved in PACS. 2. CT-guided nontargeted biopsy of the left kidney. 3. Limited post procedure CT of the abdomen. Permanent images saved in PACS. CLINICIANS: Tanner Au PA-C MEDICATIONS: -Versed 1.5 mg, Fentanyl 75 mcg, and lidocaine 1% 10 mL SQ -Antibiotics: None -For additional details, please see nursing flowsheet. COMPLICATIONS: None ESTIMATED BLOOD LOSS: < 5 ml CONTRAST: None SPECIMENS: 3 x 18 g cores were placed in saline MODERATE SEDATION TIME: 35 min PROCEDURE NOTE: The procedure, risks, benefits, and alternatives were carefully explained to the patient and written informed consent was obtained. The patient was placed prone on the CT table. A timeout was performed. A limited CT of the abdomen was performed to localize the left kidney and choose appropriate needle entry and trajectory. The patient was prepped and draped in usual sterile fashion. The skin and deeper soft tissues were anesthetized with lidocaine. Under CT guidance, a 17 gague trocar needle was advanced to the left kidney. An 18 gauge biopsy device was inserted through the trocar needle and advanced into the left kidney. A total of 3, 18 gauge cores performed. The specimen was placed in saline. A Gelfoam slurry was then administered through the trocar needle and into the kidney. The needle was removed. A dry dressing was applied and secured with Tegaderm. There were no immediate complications. The patient was stable after the procedure and was transferred to the post anesthesia care unit. The procedure was done under moderate sedation with a dedicated nurse for monitoring of vital signs. CT/CT biopsy renal RT IMPRESSION: CT-guided nontargeted left renal biopsy. No immediate complication. This procedure was performed by Tanner Au PA-C and supervised by Dr. Wilks.
[2023-11-15 10:33] LABS: MANUAL DIFF FLAG NO
--- NOTE | 2023-11-15 10:37 | MHC.SHP ---
Pre-Procedural Eval Section A - 24 Hr Update-Section A only Date of Service: 11/15/23 Section B - Complete if H&P > 30 days Chief Complaint: GROSS HEMATURIA,,PROTEINURIA, right renal Details of Present Illness: 28 y/o man with hematuria and proteinuria. Nephrology requests a biopsy. Relevant Family History (Specify if Yes): No Relevant Social History: Other (specify) (marijuana) Present Medications: see Short Stay Collaborative assessment Medical History: Significant History History of Previous Operations: No relevant previous surgery Allergies: Allergies Allergy/AdvReac Type Severity Reaction Status Date / Time apple Allergy Unknown Verified 11/15/23 09:21 pear Allergy Unknown Verified 11/15/23 09:21 plum Allergy Unknown Verified 11/15/23 09:21 Review of Systems Sugical H&P ROS: Negative: Cardiovascular, Respiratory and Gastrointestinal Exam Surgical H&P Exam: Normal: Heart, Normal: Lungs, Normal: Abdomen, Normal: Skin and Normal: Neurological and Not Evaluated: HEENT Plan I have reviewed the history and physical and performed a pertinent physical examination on my patient. No changes have occurred unless specified. Non-targeted renal biopsy Time Spent With Patient Time: Total time managing care of this patient today ____ minutes.
[2023-11-15 10:42] LABS: Basophils Absolute Auto 0.1 X10*3/uL (0.0-0.2); Basophils Percent Auto 0.8 % (0-2); Eosinophils Absolute Auto 0.2 X10*3/uL (0.0-0.4); Hematocrit 46.9 % (42.0-52.0); Hemoglobin 16.2 g/dl (14.0-18.0); Imm Gran Abs Auto 0.01 X10*3/uL (0.00-0.03); Imm Gran Pct Auto 0.2 % (0.0-0.4); Lymphocytes Absolute Auto 2.2 X10*3/uL (1.2-4.9); Lymphocytes Percent Auto 35.6 % (20-40); Mean Corpuscular HGB Conc 34.5 g/dl (31.0-36.0); Mean Corpuscular Volume 84.1 fL (80.0-98.0); Mean Platelet Volume 10.8 fL (9.4-12.4); Monocytes Absolute Auto 0.4 X10*3/uL (0.1-1.2); Monocytes Percent Auto 6.1 % (2-11); Neutrophils Absolute Auto 3.2 x10*3/uL (2.0-8.3); Neutrophils Percent Auto 53.3 % (45-73); Platelet Count 171 X10*3/uL (160-400); Red Blood Count 5.58 X10*6/uL (4.60-5.80); Red Cell Distribution Width 12.6 % (11.0-16.0)
[2023-11-15 10:50] LABS: INTERNATIONAL NORM RATIO 1.1 (0.9-1.1); Prothrombin Time 13.5 SEC (11.1-13.3)
[2023-11-15 10:52] LABS: Partial Thromboplastin Time 37.7 SEC (26.0-36.8)
[2023-11-15] MEDS: Acetaminophen 325 MG TABLET 650 MG PO ×2 (13:16→20:20)
[2023-11-15] MEDS: HYDROmorphone HCl 1 MG/ML SYRINGE IVPUSH (13:50)
--- NOTE | 2023-11-15 14:57 | PM.EVENT ---
Event Note Date of Service: 11/15/23 Event Note: Patient see 2 hr post left renal biopsy. He reports new acute left flank pain. He remains normotensive/slightly hypertensive, and not tachycardic. A stat CT scan was performed, which showed a small to moderate left subcapsular hematoma. 1 mg dilaudid was given for analgesia. Discussed with patient that we would recommend an admission for overnight observation. Also discussed that although the bleeding is not severe at this time, it would be best to proceed with an angiogram with possible embolization. He agreed to proceed with an angiogram. Consent obtained by myself and Dr. Wilks from the emergency contact they patient gave. Contacted hospitalist for admission to the hospital. [facility] NAILS Interventional Radiology Time Spent With Patient Time: Total time managing care of this patient today ____ minutes.
[2023-11-15] MEDS: ondansetron HCL 4 MG/2 ML VIAL IVPUSH ×2 (16:11→20:20)
[2023-11-15] MEDS: HYDROmorphone HCl 1 MG/ML SYRINGE 0.5 MG IVPUSH ×2 (16:50→20:54)
--- NOTE | 2023-11-15 17:30 | PM.IMHP ---
History of Present Illness Date of Service: 11/15/23 Chief Complaint: post renal biopsy hematoma 28yo M XX male with hx double mastectomy currently undergoing workup of hematuria + proteinuria by Dr Aguilera from [facility]. He came in for IR renal biopsy today. Afterwards, he developed actue left flank pain. Stat CT showed small-moderate left subcapsular hematoma. Given 1 mg IV Dilaudid. Angiogram done and no active bleeding noted. Admission requested by IR for pain control and monitoring. No anticoagulants or NSAIDs. Hb 16.2 pre-procedure. Currently c/o L flank pain and nausea. Review of Systems Review of Systems: Yes all other systems are reviewed and are negative [facility] Medical History History of kidney stones Hypertension Family History Mother Heart disease Diabetes Maternal Grandfather Diabetes Heart disease Kidney disease Social History Alcohol intake: never Patient Tobacco Use Status: Never used Tobacco Advance Directives: No Advance Directives Information Provided: Yes Meds Allergies Allergy/AdvReac Type Severity Reaction Status Date / Time apple Allergy Unknown Verified 11/15/23 09:21 pear Allergy Unknown Verified 11/15/23 09:21 plum Allergy Unknown Verified 11/15/23 09:21 Active Medications: Current Medications Acetaminophen (Acetaminophen 325 Mg Tablet) 650 mg PO Q6H PRN PRN Reason: Pain, Mild (Pain Scale 1-3) Hydromorphone HCl (Hydromorphone Hcl 1 Mg/Ml Syringe) 0.5 mg IVPUSH Q4H PRN; Protocol PRN Reason: Pain, Severe (Pain Scale 7-10) Last Admin: 11/15/23 16:50 Dose: 0.5 mg Lisinopril (Lisinopril 5 Mg Tablet) 5 mg PO DAILY [facility]; Protocol Ondansetron HCl (Ondansetron Hcl 4 Mg/2 Ml Vial) 4 mg IVPUSH ONCE PRN PRN Reason: NAUSEA/VOMITING Last Admin: 11/15/23 16:11 Dose: 4 mg Ondansetron HCl (Ondansetron Hcl 4 Mg/2 Ml Vial) 4 mg IVPUSH Q8H PRN PRN Reason: Nausea and Vomiting Sodium Chloride (0.9 % Sodium Chloride Flush 3 Ml Syringe) 3 ml IVFLUSH QSHIFT HAIM Vitamin D (Cholecalciferol (Vitamin D3) 25 Mcg Tablet) 25 mcg PO DAILY [facility] Home Medications ?Medication ?Instructions ?Recorded ?Confirmed ?Last Taken ?Type lisinopril 5 mg tablet 5 mg PO DAILY 06/15/23 11/15/23 Unknown History testosterone 40.5 mg topical QAM 06/15/23 11/15/23 Unknown History Physical Exam Vital Signs and Narrative: Vital Signs: Last Vital Signs Temp 98.4 F 11/15/23 16:00 Pulse 65 11/15/23 17:20 Resp 16 11/15/23 17:20 BP 122/60 11/15/23 17:20 Pulse Ox 96 11/15/23 17:20 O2 Del Method Room Air 11/15/23 17:20 BMI result Body Mass Index 38.1 Gen: in no acute distress HEENT: sclera anicteric, moist mucus membranes Neck: supple Lungs: clear to auscultation bilaterally Heart: regular rate and rhythm, no murmurs Abd: soft, non-tender, non-distended : L renal biopsy site with dry dressing, R femoral puncture site with dry dressing Ext: no edema Skin: warm/well-perfused Neuro: alert and oriented x3, no focal findings Psych: appropriate affect Results Labs 11/15/23 10:22 Labs: Laboratory Results - last 24 hr 11/15/23 10:22 MCV 84.1 MCH 29.0 MCHC 34.5 RDW 12.6 Plt Count 171 MPV 10.8 Immature Gran % (Auto) 0.2 Neut % (Auto) 53.3 Lymph % (Auto) 35.6 [place] % (Auto) 6.1 Eos % (Auto) 4.0 Baso % (Auto) 0.8 Lymph # (Auto) 2.2 [place] # (Auto) 0.4 Eos # (Auto) 0.2 Baso # (Auto) 0.1 Abs Immat Gran (auto) 0.01 Absolute Neuts (auto) 3.2 Absolute Nucleated RBC 0.000 Nucleated RBC % (auto) 0.0 PT 13.5 H INR 1.1 APTT 37.7 H Imaging Radiologist's Impressions: Impressions Abdomen/Pelvis CT 11/15/23 13:53 IMPRESSION: Perinephric hematoma Hepatic steatosis, hepatosplenomegaly. Fleischner guidelines were followed. Renal Arteriogram 11/15/23 15:48 IMPRESSION: Left renal angiogram. No evidence for active arterial extravasation or other arterial abnormalities. Recommendation: Keep right leg flat for 6 hours. Monitor right groin for hematoma. Admit for overnight observation and pain control. Assessment and Plan (1) Hemorrhage following kidney biopsy: Status: Acute Plan 28yo M XX male who underwent L renal biopsy today for workup of hematuria + proteinuria, complicated by small-moderate subcapsular hematoma but no active extravasation on angiogram. - Admit to M/S under observation - IV LR, pain control with IV hydromorphone, PO oxycodone/APAP, nausea control with IV ondansetron - repeat CBC in AM - no anticoagulants VTE ppx - SCDs code - full dispo - home likely tomorrow Quality Stroke Does the patient have a stroke diagnosis?: No VTE Prior VTE?: No VTE Risk Level:: Medical - moderate - high VTE Device Contraindication: N/A - Device Ordered VTE Drug Contraindication: Treatment Not Indicated
[2023-11-15] MEDS: Lactated Ringers 1,000 ML 80 ML IVCONT (18:20)
--- NOTE | 2023-11-15 18:48 | PHA.MEDREC ---
Pharmacy Consult ? Medication Reconciliation Pharmacy has completed the medication reconciliation. Confirmed meds with patient. In claims they were on Testosterone, they stated they were intermittently taking their testosterone and as of right now they are not taking it at all.
[2023-11-15] MEDS: 0.9 % Sodium Chloride Flush 3 ML SYRINGE IVFLUSH (20:20)
[2023-11-16] VITALS: BP 134/78; PULSE 64; RESP 16; TEMP 36; O2SAT 96
[2023-11-16] MEDS: HYDROmorphone HCl 1 MG/ML SYRINGE 0.5 MG IVPUSH ×5 (01:14→17:22)
[2023-11-16 04:00] VITALS: BP 134/78; PULSE 72; RESP 16; TEMP 36; O2SAT 98
[2023-11-16] MEDS: Acetaminophen 325 MG TABLET 650 MG PO ×2 (04:11→11:36)
[2023-11-16] MEDS: Lactated Ringers 1,000 ML 80 ML IVCONT (06:59)
[2023-11-16 07:51] VITALS: BP 129/78; PULSE 61; RESP 16; TEMP 37.1; O2SAT 97
[2023-11-16 08:01] LABS: MANUAL DIFF FLAG NO
[2023-11-16 08:11] LABS: Basophils Percent Auto 0.4 % (0-2); Eosinophils Absolute Auto 0.1 X10*3/uL (0.0-0.4); Eosinophils Percent Auto 0.6 % (0-4); Hematocrit 40.4 % (42.0-52.0); Imm Gran Abs Auto 0.06 X10*3/uL (0.00-0.03); Imm Gran Pct Auto 0.6 % (0.0-0.4); Lymphocytes Absolute Auto 1.2 X10*3/uL (1.2-4.9); Lymphocytes Percent Auto 11.5 % (20-40); Mean Corpuscular HGB Conc 34.7 g/dl (31.0-36.0); Mean Corpuscular Hemoglobin 29.6 pg (27.0-33.0); Mean Corpuscular Volume 85.4 fL (80.0-98.0); Mean Platelet Volume 11.2 fL (9.4-12.4); Monocytes Absolute Auto 0.7 X10*3/uL (0.1-1.2); Monocytes Percent Auto 7.3 % (2-11); Neutrophils Absolute Auto 8.1 x10*3/uL (2.0-8.3); Neutrophils Percent Auto 79.6 % (45-73); Platelet Count 149 X10*3/uL (160-400); Red Blood Count 4.73 X10*6/uL (4.60-5.80); White Blood Count 10.1 X10*3/uL (4.8-10.8)
[2023-11-16 08:20] LABS: Anion Gap 13 (12-20); Blood Urea Nitrogen 15 mg/dL (9-16); Calcium 8.5 mg/dL (8.4-10.2); Carbon Dioxide 24 mmol/L (22-29); Chloride 105 mmol/L (96-108); Creatinine Clr Calc Pharmacy 133.6; Estimated Glomerular Filt Rate > 60; Glucose Random 105 mg/dL (60-115); Potassium 3.9 mmol/L (3.3-5.1); Sodium 138 mmol/L (135-145)
[2023-11-16 08:43] VITALS: BP 129/78
[2023-11-16] MEDS: lisinopriL 5 MG TABLET PO (08:43)
[2023-11-16] MEDS: ondansetron HCL 4 MG/2 ML VIAL IVPUSH (08:43)
[2023-11-16] MEDS: Cholecalciferol (Vitamin D3) 25 MCG TABLET PO (08:43)
--- NOTE | 2023-11-16 09:34 | PM.EVENT ---
Event Note Date of Service: 11/16/23 Event Note: Interventional Radiology Progress Note S: Reports left flank discomfort. Nausea overnight. O: Afebrile, 129/79/ 61/ 16/ 97% RA Gen: appears comfortable, NAD Left flank: dressing c/d/i, +cva tenderness Right groin: no palpable hematoma A/P 28 y/o male s/p left renal biopsy for proteinuria hematuria who developed a mild to moderate subcapsular hemtoma post procedure. Angiogram was negative for active bleeding. Admitted for observation. -HCT stable 40 (46) -Regular diet -Told patient very light activity for the next week and discomfort is to be expected. -Ok to discharge home from IR perspective -Updated patient's director of education and training on events Tanner NAILS Time Spent With Patient Time: Total time managing care of this patient today ____ minutes.
--- NOTE | 2023-11-16 10:36 | MHC.CM.PN ---
EMR REVIEWED, CM MET W/PT WHO REPORTS HE LIVES W/SPOUSE, WORKS FROM HOME, IS FULLY INDEP , NO DME/SERVICES, PT EDUCATED ON AND COMPLETED A HC W/CM NAMING HIS RICO CHAVEZ [phone] HIS [facility] AND FRIEND CRISTINO DEE [phone] HIS ALTERNATE, COPY UPLOADED TO [facility] AND PLACED IN CHART. PCP ON FILE VERIFIED. ANTIC PT MAY DC HOME LATER TODAY SELF CARE W/PT ARRANGING TRANSPORT
[2023-11-16 11:49] VITALS: BP 142/78; PULSE 66; RESP 20; TEMP 36; O2SAT 96
--- NOTE | 2023-11-16 14:16 | PM.DS ---
DS: Providers Provider Date of Service: 11/16/23 Date of admission: 11/15/23 16:27 Date of discharge: 11/16/23 Primary care physician: LEEANNA Acosta DS: Diagnosis Discharge Diagnosis (1) Hemorrhage following kidney biopsy: Status: Acute DS: Summary Hospital Course Hospital Course: From my admission H+P, 11/15/23: 28yo M XX male with hx double mastectomy currently undergoing workup of hematuria + proteinuria by Dr Aguilera from [facility]. He came in for IR renal biopsy today. Afterwards, he developed actue left flank pain. Stat CT showed small-moderate left subcapsular hematoma. Given 1 mg IV Dilaudid. Angiogram done and no active bleeding noted. Admission requested by IR for pain control and monitoring. No anticoagulants or NSAIDs. Hb 16.2 pre-procedure. Currently c/o L flank pain and nausea. He was admitted to the medical-surgery floor. Hemoglobin was stable at 14 and afterwards 14.5. He was given IV Dilaudid and discharged on PO oxycodone and ondansetron. He should follow up with Nephrology for biopsy results. Time Attestation Discharge Coordination Time (in mins): 35 Quality: Safe Use of Opioids Does Pt have an Active Cancer Diagnosis on the Problem List?: No Quality: Stroke Does the patient have a stroke diagnosis?: No Physical Exam Vital Signs: Vital Signs: Last Vital Signs Temp 96.8 F 11/16/23 11:49 Pulse 66 11/16/23 11:49 Resp 20 11/16/23 11:49 BP 142/78 H 11/16/23 11:49 Pulse Ox 96 11/16/23 11:49 O2 Del Method Room Air 11/16/23 11:49 BMI result Body Mass Index 38.1 Gen: in no acute distress HEENT: sclera anicteric, moist mucus membranes Neck: supple Lungs: clear to auscultation bilaterally Heart: regular rate and rhythm, no murmurs Abd: soft, non-tender, non-distended : L flank dressing dry, no R groin hematoma Ext: no edema Skin: warm/well-perfused Neuro: alert and oriented x3, no focal findings Psych: appropriate affect DS: Data Data Completed and Pending Completed studies during hospitalization [Text1]: Laboratory Results WBC 10.1 X10*3/uL (4.8-10.8) 11/16/23 07:19 RBC 4.73 X10*6/uL (4.60-5.80) 11/16/23 07:19 Hgb 14.0 g/dl (14.0-18.0) 11/16/23 07:19 Hct 40.4 % (42.0-52.0) L 11/16/23 07:19 MCV 85.4 fL (80.0-98.0) 11/16/23 07:19 MCH 29.6 pg (27.0-33.0) 11/16/23 07:19 MCHC 34.7 g/dl (31.0-36.0) 11/16/23 07:19 RDW 13.0 % (11.0-16.0) 11/16/23 07:19 Plt Count 149 X10*3/uL (160-400) L 11/16/23 07:19 MPV 11.2 fL (9.4-12.4) 11/16/23 07:19 Immature Gran % (Auto) 0.6 % (0.0-0.4) H 11/16/23 07:19 Neut % (Auto) 79.6 % (45-73) H 11/16/23 07:19 Lymph % (Auto) 11.5 % (20-40) L 11/16/23 07:19 [place] % (Auto) 7.3 % (2-11) 11/16/23 07:19 Eos % (Auto) 0.6 % (0-4) 11/16/23 07:19 Baso % (Auto) 0.4 % (0-2) 11/16/23 07:19 Lymph # (Auto) 1.2 X10*3/uL (1.2-4.9) 11/16/23 07:19 [place] # (Auto) 0.7 X10*3/uL (0.1-1.2) 11/16/23 07:19 Eos # (Auto) 0.1 X10*3/uL (0.0-0.4) 11/16/23 07:19 Baso # (Auto) 0.0 X10*3/uL (0.0-0.2) 11/16/23 07:19 Abs Immat Gran (auto) 0.06 X10*3/uL (0.00-0.03) H 11/16/23 07:19 Absolute Neuts (auto) 8.1 x10*3/uL (2.0-8.3) 11/16/23 07:19 Absolute Nucleated RBC 0.000 X10*3/uL (0.0-0.012) 11/16/23 07:19 Nucleated RBC % (auto) 0.0 /100WBC (0.0-0.2) 11/16/23 07:19 PT 13.5 SEC (11.1-13.3) H 11/15/23 10:22 INR 1.1 (0.9-1.1) 11/15/23 10:22 APTT 37.7 SEC (26.0-36.8) H 11/15/23 10:22 Sodium 138 mmol/L (135-145) 11/16/23 07:19 Potassium 3.9 mmol/L (3.3-5.1) 11/16/23 07:19 Chloride 105 mmol/L (96-108) 11/16/23 07:19 Carbon Dioxide 24 mmol/L (22-29) 11/16/23 07:19 Anion Gap 13 (12-20) 11/16/23 07:19 BUN 15 mg/dL (9-16) 11/16/23 07:19 Creatinine 1.02 mg/dL (0.5-1.4) 11/16/23 07:19 Estim Creat Clear Calc 133.6 11/16/23 07:19 Estimated GFR > 60 11/16/23 07:19 Random Glucose 105 mg/dL (60-115) 11/16/23 07:19 Calcium 8.5 mg/dL (8.4-10.2) 11/16/23 07:19 Blood Type O Positive 11/15/23 18:41 Antibody Screen NEGATIVE 11/15/23 18:[address] 11/15/23 11:55 IMPRESSION: CT-guided nontargeted left renal biopsy. No immediate complication. This procedure was performed by Tanner Au PA-C and supervised by Dr. Wilks. Abdomen/Pelvis CT 11/15/23 13:53 IMPRESSION: Perinephric hematoma Hepatic steatosis, hepatosplenomegaly. Fleischner guidelines were followed. Renal Arteriogram 11/15/23 15:48 IMPRESSION: Left renal angiogram. No evidence for active arterial extravasation or other arterial abnormalities. Recommendation: Keep right leg flat for 6 hours. Monitor right groin for hematoma. Admit for overnight observation and pain control. Discharge Plan Discharge Patient Disposition: Home, Self-Care Discharge Diagnosis: hematoma from renal biopsy Referrals: Lenin Avendano, PEDRO-BC [Primary Care Provider] - 1 Week Discharge Medications: New oxycodone 5 mg Tablet 5 mg PO Q4H PRN (Reason: Pain, Moderate(Pain Scale 4-6)) Qty: 18 0RF Rx Instructions: Partial Fill upon patient request. cholecalciferol (vitamin D3) 25 mcg (1,000 unit) Tablet 25 mcg PO DAILY Qty: 1 0RF ondansetron 4 mg tablet,disintegrating 4 mg PO Q4H PRN (Reason: nausea and vomiting) Qty: 30 0RF Continued lisinopril 5 mg tablet 5 mg PO DAILY Diet: Advance to usual diet Activity on Discharge: As tolerated Stand Alone Forms: Patient Portal Discharge page, Work/School Release Print Language: Andorran Care Plan Goals: pain control Health Concerns: hematoma from renal biopsy Plan of Treatment: drink plenty of fluids and rest take acetaminophen 500-1000 mg every 6 hours as needed for mild-moderate pain [maximum 4000 mg/d] take oxycodone 5 mg every 4 hours as needed for severe pain take ondansetron 4 mg every 4 hours as needed for nausea/vomiting avoid aspirin and NSAIDs like ibuprofen or naproxen 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 Return to the hospital if you experience recurrent or worsening symptoms.
[2023-11-16 15:33] VITALS: BP 143/79; PULSE 71; RESP 16; TEMP 36.3; O2SAT 97
[2023-11-16 16:45] LABS: Hematocrit 41.9 % (42.0-52.0); Hemoglobin 14.5 g/dl (14.0-18.0)
== END 2023-11-16 17:54 | disposition home or self-care (01) ==
LOC: HO.S3 16:29
PROVIDERS: Physician Assistant Surgical; Radiology Vascular & Interventional Radiology; Student in an Organized Health Care Education/Training Program; Admitting Provider Family Medicine; PCP Registered Nurse; Visit Provider Family Medicine
DX: N99.841 Postprocedural hematoma of a genitourinary system organ or structure following other procedure (principal); Y84.8 Other medical procedures as the cause of abnormal reaction of the patient, or of later complication, without mention of misadventure at the time of the procedure; R31.0 Gross hematuria; R80.9 Proteinuria, unspecified; R10.9 Unspecified abdominal pain; R16.2 Hepatomegaly with splenomegaly, not elsewhere classified
CPT/HCPCS: 36253; 36415; 50200; 74176; 77012; 80048; 85014; 85018; 85025; 85610; 85730; 86850; 86900; 86901; 88300; 88305; 88313; 88346; 88348; 88350; 96361; 96374; 96375; 96376; 99152; 99153; 99221; C1769; C1887; C1894; J1170; J1644; J2250; J2310; J2405; J3010; J7120; Q9967

== ENCOUNTER → 2023-11-15 16:27 | Outpatient (BNV) | payer OTHER, SELFPAY | PROVIDERS: Admitting Provider Family Medicine; PCP Registered Nurse; Visit Provider Family Medicine | DX: N99.820 Postprocedural hemorrhage of a genitourinary system organ or structure following a genitourinary system procedure (principal) | CPT/HCPCS: 99222; 99239 ==

== ENCOUNTER 2023-11-22 10:01 | Outpatient (AMB) | payer OTHER, SELFPAY ==
--- NOTE | 2023-11-22 10:02 | HO.NEPHOV ---
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 Referred for Hematuria He has had back pain and seen in ED Suspected to have kidney stone. No stones seen in [facility] Seen by Urology for hematuria Scheduled for a CT Urogram He has a history of hypertension since 2017; HE i son Lisinopril 5 mg QD He is on Testosterone. over the last 2 years to be having intermittent episodes of right-sided flank pain with episodes of dark urine. He reports having followed up with PCP and multiple hospital visits for this exact issue at which time bedside renal ultrasounds were performed noting no nephrolithiasis. When asked he denies smoking cigarettes/nicotine and or any known chemical exposure. However, does report smoking recreational marijuana daily. [facility] Medical History History of kidney stones Hypertension Family History Mother Heart disease Diabetes Maternal Grandfather Diabetes Heart disease Kidney disease Social History Alcohol intake: never Patient Tobacco Use Status: Never used Tobacco service: No Physical Exam Vital Signs: Last Vital Signs Pulse 80 11/22/23 10:03 BP 140/106 H 11/22/23 10:03 Pulse Ox 97 11/22/23 10:03 Oxygen Delivery Method Room Air 11/22/23 10:03 BMI result Body Mass Index 35.6 Const General: comfortable; No acute distress Orientation/consciousness: patient oriented x3 Eyes General: appearance normal, both eyes and all related structures Visual Hood: normal visual hood by confrontation Neck Neck: Yes supple and Yes no JVD Resp Effort & Inspection: normal respiratory effort and respiratory effort not decreased Auscultation: rhonchi Cardio Palpation: no palpable S3 and no palpable S4 Heart sounds: no rubs GI Inspection: Yes normal to inspection Palpation (GI): Soft to palpation Percussion: Yes normal to percussion Auscultation: normal bowel sounds General: Yes no CVA tenderness Back/Spine/Pelvis Back: no CVA tenderness Skin General skin exam: no petechiae and no purpura Neuro General: patient oriented x3 and no focal motor deficits Extrem General: No clubbing and No edema Results Reviewed Nephrology Results: Hgb 14.9 g/dl (14.0-18.0) 11/22/23 WBC 8.8 X10*3/uL (4.8-10.8) 11/22/23 Plt Count 284 X10*3/uL (160-400) 11/22/23 Sodium 137 mmol/L (135-145) 11/22/23 Potassium 4.3 mmol/L (3.3-5.1) 11/22/23 Chloride 104 mmol/L (96-108) 11/22/23 Carbon Dioxide 25 mmol/L (22-29) 11/22/23 BUN 17 mg/dL (9-16) H 11/22/23 Creatinine 1.18 mg/dL (0.5-1.4) 11/22/23 Calcium 9.9 mg/dL (8.4-10.2) 11/22/23 Phosphorus 3.0 mg/dL (2.7-4.5) 08/13/23 Urine Protein >=1000 (4+) mg/dL (Neg-Trace) H 11/22/23 Urine Creatinine 276.25 mg/dL 11/22/23 Renal US 09/05/23 Assessment & Plan Assessment & Plan (1) Gross hematuria: Code(s): R31.0 - Gross hematuria Category: Medical (2) Proteinuria: Code(s): R80.9 - Proteinuria, unspecified Category: Medical Plan Kam is 28 yr old with hematuria nd protienuria and normal renal function No urological causes have been established He has uricoseuria.Does he have uric acid stones? 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 We will recheck renal panel along with a urine protein creatinine ratio. Based on this he would require specific therapy. I have discussed treatment options. Gluten office in the next 1 week Orders: Orders Complete Blood Count no Diff 11/22/23 R31.0 - Gross hematuria, R80.9 - Proteinuria, unspecified Basic Metabolic Panel 11/22/23 R31.0 - Gross hematuria, R80.9 - Proteinuria, unspecified Total Protein Urine Random 11/22/23 R31.0 - Gross hematuria, R80.9 - Proteinuria, unspecified Creatinine Urine 11/22/23 R31.0 - Gross hematuria, R80.9 - Proteinuria, unspecified UA and rflx microscopic 11/22/23 R31.0 - Gross hematuria, R80.9 - Proteinuria, unspecified Medications: Changed From lisinopril 10 mg PO DAILY To lisinopril 10 mg PO DAILY 30 tabs 0RF Coding Level of Care Code Est Pt Level 4 (16374) Diagnoses Gross hematuria R31.0 Proteinuria R80.9
[2023-11-22 10:03] VITALS: BP 140/106; PULSE 80; O2SAT 97; BMI 35.6
== END 2023-11-22 10:28 | disposition home or self-care (01) ==
PROVIDERS: Visit Provider Internal Medicine Hypertension Specialist
DX: R31.0 Gross hematuria (principal); R80.9 Proteinuria, unspecified
CPT/HCPCS: 99214

== ENCOUNTER → 2023-11-22 10:01 | Outpatient (BNVA) | payer OTHER, SELFPAY | PROVIDERS: Visit Provider Internal Medicine Hypertension Specialist ==

== ENCOUNTER 2023-11-22 10:40 | Outpatient (REF) | payer OTHER, SELFPAY ==
[2023-11-22 13:20] LABS: Hematocrit 42.7 % (42.0-52.0); Hemoglobin 14.9 g/dl (14.0-18.0); Mean Corpuscular HGB Conc 34.9 g/dl (31.0-36.0); Mean Corpuscular Hemoglobin 29.1 pg (27.0-33.0); Mean Corpuscular Volume 83.4 fL (80.0-98.0); Mean Platelet Volume 10.6 fL (9.4-12.4); Platelet Count 284 X10*3/uL (160-400); Red Blood Count 5.12 X10*6/uL (4.60-5.80); Red Cell Distribution Width 12.3 % (11.0-16.0); White Blood Count 8.8 X10*3/uL (4.8-10.8)
[2023-11-22 13:40] LABS: Anion Gap 12 (12-20); Blood Urea Nitrogen 17 mg/dL (9-16); Calcium 9.9 mg/dL (8.4-10.2); Carbon Dioxide 25 mmol/L (22-29); Chloride 104 mmol/L (96-108); Estimated Glomerular Filt Rate > 60; Glucose Random 106 mg/dL (60-115); Potassium 4.3 mmol/L (3.3-5.1); Sodium 137 mmol/L (135-145)
[2023-11-22 13:45] LABS: Appearance Urine Turbid; Color Urine Dark Yellow; Glucose Urine UA Negative (Negative); Leukocyte Esterase Urine Trace (Negative); Nitrite Urine Negative (Negative); PH 5.5 (5.0-9.0); Specific Gravity - Urine >= 1.030 (1.005-1.025); UMIC TRIGGER UA YES; Urine Blood Large (3+) (Negative); Urine Ketones Negative (Negative); Urine Protein >=1000 (4+) mg/dL (Neg-Trace)
[2023-11-22 13:50] LABS: Creatinine Urine 276.25 mg/dL
[2023-11-22 14:01] LABS: Total Protein Urine Random 889 mg/dL (<12)
[2023-11-22 14:04] LABS: Bacteria Urine None Seen (None Seen); RBC Urine >20 /HPF (0-2)
== END 2023-11-22 10:41 | disposition home or self-care (01) ==
LOC: HO.10HDL 10:40
PROVIDERS: Visit Provider Internal Medicine Hypertension Specialist
DX: R31.0 Gross hematuria (principal); R80.9 Proteinuria, unspecified
CPT/HCPCS: 36415; 80048; 81001; 82570; 84156; 85027

== ENCOUNTER 2024-01-01 10:21 | Outpatient (AMB) | payer OTHER, SELFPAY ==
--- NOTE | 2024-01-01 10:28 | HO.NEPHOV ---
Vital Signs 01/01/24 10:29 Height 5 ft 10 in Weight 259 lb BMI 37.2 BP 132/87 Blood Pressure Location Lt brachial Position Sitting Pulse 72 Pulse Source Pulse Oximeter Pulse Oximetry (%) 97 Oxygen Delivery Method Room Air Intake Visit Reasons: 2 weeks fu/ Conf Operator Command Support Systems Required: No Accompanied by: Self / Same As Patient Allergies apple Allergy (Verified 01/01/24 10:31) Unknown pear Allergy (Verified 01/01/24 10:31) Unknown plum Allergy (Verified 01/01/24 10:31) Unknown Medication List - Last Reconciled 01/01/24 by Marlon Aguilera MD acetaminophen (Tylenol Extra Strength) 1,000 mg PO Q6H PRN cholecalciferol (vitamin D3) 25 mcg PO DAILY lisinopril 20 mg PO DAILY ondansetron 4 mg PO Q4H PRN oxycodone 5 mg PO Q4H PRN HPI Comments Details: Kam is 28-year-old , with no gender affirming genital surgery who was accompanied by his significant other at today's office visit. Referred for Hematuria He has had back pain and seen in ED Suspected to have kidney stone. No stones seen in [facility] Seen by Urology for hematuria Scheduled for a CT Urogram He has a history of hypertension since 2017; HE i son Lisinopril 5 mg QD He is on Testosterone. over the last 2 years to be having intermittent episodes of right-sided flank pain with episodes of dark urine. He reports having followed up with PCP and multiple hospital visits for this exact issue at which time bedside renal ultrasounds were performed noting no nephrolithiasis. When asked he denies smoking cigarettes/nicotine and or any known chemical exposure. However, does report smoking recreational marijuana daily. 01/01/2024. Currently on lisinopril 15 mg a day. Recently had COVID vaccination started developing dark brown urine. He has had this episode during previous vaccine administration as well. No other complaints today. [facility] Medical History History of kidney stones Hypertension Family History Mother Heart disease Diabetes Maternal Grandfather Diabetes Heart disease Kidney disease Social History Alcohol intake: never Patient Tobacco Use Status: Never used Tobacco service: No Physical Exam Vital Signs: Last Vital Signs Pulse 72 01/01/24 10:29 BP 132/87 01/01/24 10:29 Pulse Ox 97 01/01/24 10:29 Oxygen Delivery Method Room Air 01/01/24 10:29 BMI result Body Mass Index 37.2 Const General: comfortable; No acute distress Orientation/consciousness: patient oriented x3 Eyes General: appearance normal, both eyes and all related structures Visual Hood: normal visual hood by confrontation Neck Neck: Yes supple and Yes no JVD Resp Effort & Inspection: normal respiratory effort and respiratory effort not decreased Auscultation: rhonchi Cardio Palpation: no palpable S3 and no palpable S4 Heart sounds: no rubs GI Inspection: Yes normal to inspection Palpation (GI): Soft to palpation Percussion: Yes normal to percussion Auscultation: normal bowel sounds General: Yes no CVA tenderness Back/Spine/Pelvis Back: no CVA tenderness Skin General skin exam: no petechiae and no purpura Neuro General: patient oriented x3 and no focal motor deficits Extrem General: No clubbing and No edema Results Reviewed Nephrology Results: Hgb 14.9 g/dl (14.0-18.0) 11/22/23 WBC 8.8 X10*3/uL (4.8-10.8) 11/22/23 Plt Count 284 X10*3/uL (160-400) 11/22/23 Sodium 139 mmol/L (135-145) 01/01/24 Potassium 4.1 mmol/L (3.3-5.1) 01/01/24 Chloride 106 mmol/L (96-108) 01/01/24 Carbon Dioxide 22 mmol/L (22-29) 01/01/24 BUN 14 mg/dL (9-16) 01/01/24 Creatinine 0.82 mg/dL (0.5-1.4) 01/01/24 Calcium 9.5 mg/dL (8.4-10.2) 01/01/24 Phosphorus 3.0 mg/dL (2.7-4.5) 08/13/23 Urine Protein 300 (3+) mg/dL (Neg-Trace) H 01/01/24 Urine Creatinine 92.25 mg/dL 01/01/24 Renal US 09/05/23 Assessment & Plan Assessment & Plan (1) Proteinuria: Code(s): R80.9 - Proteinuria, unspecified Category: Medical (2) Gross hematuria: Code(s): R31.0 - Gross hematuria Category: Medical Plan Kam is 28 yr old with hematuria nd protienuria and normal renal function No urological causes have been established He has uricoseuria. Renal sonogram was unremarkable Kidney biopsy revealed IgA nephropathy and 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 First step is to maximize ANALISA inhibitors. Next would be to add SGLT2 inhibitors. Monitor urine protein excretion. He may require further immunosuppression based on urinary protein excretion and clinical course. Encouraged to maintain blood pressure less than 130/80 He will benefit from weight loss as well. Referred to weight loss clinic Orders: Orders Total Protein Urine Random Today R80.9 - Proteinuria, unspecified UA and rflx microscopic Today R80.9 - Proteinuria, unspecified Basic Metabolic Panel Today R80.9 - Proteinuria, unspecified Creatinine Urine Today R80.9 - Proteinuria, unspecified Creatinine Urine Today R80.9 - Proteinuria, unspecified Basic Metabolic Panel Today R80.9 - Proteinuria, unspecified Total Protein Urine Random Today R80.9 - Proteinuria, unspecified Referrals Medical Weight Management Referral E66.9 - Obesity, unspecified Medications: New lisinopril 20 mg PO DAILY 30 tabs 1RF Discontinued lisinopril Discontinued Reason: Doctor's Order 15 mg (1.5 x 10 mg) PO DAILY 135 tabs 1RF Coding Level of Care Code Est Pt Level 4 (77717) Diagnoses Proteinuria R80.9 Gross hematuria R31.0
[2024-01-01 10:29] VITALS: BP 132/87; PULSE 72; O2SAT 97; BMI 37.2
== END 2024-01-01 10:50 | disposition home or self-care (01) ==
PROVIDERS: Visit Provider Internal Medicine Hypertension Specialist
DX: R80.9 Proteinuria, unspecified (principal); R31.0 Gross hematuria
CPT/HCPCS: 99214

== ENCOUNTER 2024-01-01 10:21 | Outpatient (REF) | payer OTHER, SELFPAY ==
[2024-01-01 11:35] LABS: INTERNATIONAL NORM RATIO 1.2 (0.9-1.1); Prothrombin Time 14.5 SEC (11.1-13.3)
[2024-01-01 12:11] LABS: Anion Gap 15 (12-20); Blood Urea Nitrogen 14 mg/dL (9-16); Calcium 9.5 mg/dL (8.4-10.2); Carbon Dioxide 22 mmol/L (22-29); Chloride 106 mmol/L (96-108); Estimated Glomerular Filt Rate > 60; Glucose Random 96 mg/dL (60-115); Potassium 4.1 mmol/L (3.3-5.1); Sodium 139 mmol/L (135-145)
[2024-01-01 12:30] LABS: Appearance Urine Clear; Color Urine Yellow; Glucose Urine UA Negative (Negative); Leukocyte Esterase Urine Negative (Negative); Nitrite Urine Negative (Negative); PH 5.5 (5.0-9.0); Specific Gravity - Urine 1.015 (1.005-1.025); UMIC TRIGGER UA YES; Urine Blood Large (3+) (Negative); Urine Ketones Negative (Negative); Urine Protein 300 (3+) mg/dL (Neg-Trace)
[2024-01-01 12:39] LABS: Bacteria Urine None Seen (None Seen); Hyaline Casts Urine 0-2 /LPF (0-2); RBC Urine >20 /HPF (0-2); Squamous Epithelial Cell Urine 0-2 /HPF (0-2); WBC Urine 0-5 /HPF (0-5)
[2024-01-01 12:48] LABS: Creatinine Urine 92.25 mg/dL; Total Protein Urine Random 157 mg/dL (<12)
== END 2024-01-01 10:22 | disposition home or self-care (01) ==
LOC: HO.LAB 10:21
PROVIDERS: Visit Provider Internal Medicine Hypertension Specialist
DX: R80.9 Proteinuria, unspecified (principal); R31.0 Gross hematuria
CPT/HCPCS: 36415; 80048; 81001; 82570; 84156; 85610

== ENCOUNTER 2024-03-19 10:34 | Outpatient (REF) | payer OTHER, SELFPAY ==
[2024-03-19 13:25] LABS: Appearance Urine Cloudy; Color Urine Yellow; Glucose Urine UA Negative (Negative); Leukocyte Esterase Urine Small (1+) (Negative); Nitrite Urine Negative (Negative); PH 5.5 (5.0-9.0); UMIC TRIGGER UA YES; Urine Blood Large (3+) (Negative); Urine Ketones Negative (Negative); Urine Protein 100 (2+) mg/dL (Neg-Trace)
[2024-03-19 13:30] LABS: Bacteria Urine None Seen (None Seen); RBC Urine >20 /HPF (0-2)
[2024-03-19 14:06] LABS: Anion Gap 12 (12-20); Blood Urea Nitrogen 23 mg/dL (9-16); Carbon Dioxide 24 mmol/L (22-29); Chloride 107 mmol/L (96-108); Estimated Glomerular Filt Rate > 60; Glucose Random 98 mg/dL (60-115); Potassium 4.2 mmol/L (3.3-5.1); Sodium 139 mmol/L (135-145); Uric Acid 9.5 mg/dL (3.4-7.0)
[2024-03-19 14:25] LABS: Creatinine Urine 145.02 mg/dL; Total Protein Urine Random 80 mg/dL (<12)
== END 2024-03-19 10:35 | disposition home or self-care (01) ==
LOC: HO.10HDL 10:34
PROVIDERS: Visit Provider Internal Medicine Hypertension Specialist
DX: R80.9 Proteinuria, unspecified (principal)
CPT/HCPCS: 36415; 80048; 81001; 82570; 84156; 84550

== ENCOUNTER 2024-03-21 10:45 | Outpatient (AMB) | payer OTHER, SELFPAY ==
[2024-03-21 10:46] VITALS: BP 130/98; PULSE 88; O2SAT 96; BMI 36.6
--- NOTE | 2024-03-21 10:46 | HO.NEPHOV_ITS ---
Vital Signs 03/21/24 10:46 Height 5 ft 10 in Weight 255 lb BMI 36.6 BP 130/98 H Blood Pressure Location Rt brachial Position Sitting Pulse 88 Pulse Source Pulse Oximeter Pulse Oximetry (%) 96 Oxygen Delivery Method Room Air Intake Visit Reasons: Follow up/ Conf Driving School Instructor Required: No Accompanied by: Spouse Allergies apple Allergy (Verified 03/21/24 10:49) Unknown pear Allergy (Verified 03/21/24 10:49) Unknown plum Allergy (Verified 03/21/24 10:49) Unknown Medication List - Last Reconciled 03/21/24 by Marlon Aguilera MD acetaminophen (Tylenol Extra Strength) 1,000 mg PO Q6H PRN cholecalciferol (vitamin D3) 25 mcg PO DAILY lisinopril 20 mg PO DAILY oxycodone 5 mg PO Q4H PRN HPI Comments Details: Kam is 28-year-old , with no gender affirming genital surgery who was accompanied by his significant other at today's office visit. Referred for Hematuria He has had back pain and seen in ED Suspected to have kidney stone. No stones seen in [facility] Seen by Urology for hematuria Scheduled for a CT Urogram He has a history of hypertension since 2017; HE i son Lisinopril 5 mg QD He is on Testosterone. over the last 2 years to be having intermittent episodes of right-sided flank pain with episodes of dark urine. He reports having followed up with PCP and multiple hospital visits for this exact issue at which time bedside renal ultrasounds were performed noting no nephrolithiasis. When asked he denies smoking cigarettes/nicotine and or any known chemical exposure. However, does report smoking recreational marijuana daily. 01/01/2024. Currently on lisinopril 15 mg a day. Recently had COVID vaccination started developing dark brown urine. He has had this episode during previous vaccine administration as well. No other complaints today. 03/21/24 Developed gout Treated with short course of Prednisone Still in pain Uric acid 9.5 PFSH Medical History History of kidney stones Hypertension Family History Mother Heart disease Diabetes Maternal Grandfather Diabetes Heart disease Kidney disease Social History (Reviewed 03/21/24 @ 10:49 by RADHA Peterson Alcohol intake: never Patient Tobacco Use Status: Never used Tobacco service: No Physical Exam Vital Signs: Last Vital Signs Pulse 88 03/21/24 10:46 BP 130/98 H 03/21/24 10:46 Pulse Ox 96 03/21/24 10:46 Oxygen Delivery Method Room Air 03/21/24 10:46 BMI result Body Mass Index 36.6 Const General: comfortable; No acute distress Orientation/consciousness: patient oriented x3 Eyes General: appearance normal, both eyes and all related structures Visual Hood: normal visual hood by confrontation Neck Neck: Yes supple and Yes no JVD Resp Effort & Inspection: normal respiratory effort and respiratory effort not decreased Auscultation: rhonchi Cardio Palpation: no palpable S3 and no palpable S4 Heart sounds: no rubs GI Inspection: Yes normal to inspection Palpation (GI): Soft to palpation Percussion: Yes normal to percussion Auscultation: normal bowel sounds General: Yes no CVA tenderness Back/Spine/Pelvis Back: no CVA tenderness Skin General skin exam: no petechiae and no purpura Neuro General: patient oriented x3 and no focal motor deficits Extrem Other: Tenderness in the right 1st MTP joint General: No clubbing and No edema Results Reviewed Results Reviewed: Urine protein creatinine ratio was 1.7 and has decreased to 0.55 Nephrology Results: Hgb 14.9 g/dl (14.0-18.0) 11/22/23 WBC 8.8 X10*3/uL (4.8-10.8) 11/22/23 Plt Count 284 X10*3/uL (160-400) 11/22/23 Sodium 139 mmol/L (135-145) 03/19/24 Potassium 4.2 mmol/L (3.3-5.1) 03/19/24 Chloride 107 mmol/L (96-108) 03/19/24 Carbon Dioxide 24 mmol/L (22-29) 03/19/24 BUN 23 mg/dL (9-16) H 03/19/24 Creatinine 0.87 mg/dL (0.5-1.4) 03/19/24 Calcium 9.0 mg/dL (8.4-10.2) 03/19/24 Urine Protein 100 (2+) mg/dL (Neg-Trace) H 03/19/24 Urine Creatinine 145.02 mg/dL 03/19/24 Assessment & Plan Assessment & Plan (1) Proteinuria: Code(s): R80.9 - Proteinuria, unspecified Category: Medical (2) Gross hematuria: Code(s): R31.0 - Gross hematuria Category: Medical Plan Kam is 28 yr old with hematuria nd protienuria and normal renal function No urological causes have been established He has uricoseuria. Renal sonogram was unremarkable Kidney biopsy revealed IgA nephropathy and 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 First step is to maximize ANALISA inhibitors. Next would be to add SGLT2 inhibitors. Tolerating lisinopril 20 mg a day. I would like to increase it to 30 mg a day but I would do this after gout has resolved. Monitor urine protein excretion. We will hold off on further immunosuppression based on urinary protein excretion and clinical course. Encouraged to maintain blood pressure less than 130/80 He will benefit from weight loss as well. Referred to weight loss clinic No absolutely contraindication for using Wegovy Gout. Discussed low purine diet We will add allopurinol 300 mg a day. I have given him low-dose indomethacin 25 to be used sparingly for acute gout. Recent serum creatinine was 0.87. Orders: Orders Complete Blood Count Auto Diff 4 Weeks M10.9 - Gout, unspecified, R80.9 - Proteinuria, unspecified Basic Metabolic Panel 4 Weeks M10.9 - Gout, unspecified, R80.9 - Proteinuria, unspecified Total Protein Urine Random 4 Weeks M10.9 - Gout, unspecified, R80.9 - Proteinuria, unspecified Uric Acid 4 Weeks M10.9 - Gout, unspecified, R80.9 - Proteinuria, unspecified Creatinine Urine 4 Weeks M10.9 - Gout, unspecified, R80.9 - Proteinuria, unspecified Medications: New allopurinol 300 mg PO DAILY 30 tabs 3RF indomethacin administer with food 25 mg PO DAILY PRN 30 caps 1RF gout Coding Level of Care Code Est Pt Level 4 (32530) Complex EM visit Add On G2211 Diagnoses Proteinuria R80.9 Gross hematuria R31.0
== END 2024-03-21 11:15 | disposition home or self-care (01) ==
PROVIDERS: Visit Provider Internal Medicine Hypertension Specialist
DX: R80.9 Proteinuria, unspecified (principal); N02.B9 Other recurrent and persistent immunoglobulin A nephropathy
CPT/HCPCS: 99214; G2211

== ENCOUNTER → 2024-03-21 10:45 | Outpatient (BNVA) | payer OTHER, SELFPAY | PROVIDERS: Visit Provider Internal Medicine Hypertension Specialist ==

== ENCOUNTER 2024-04-15 11:11 | Outpatient (REF) | payer OTHER, SELFPAY ==
[2024-04-15 11:33] LABS: MANUAL DIFF FLAG NO
[2024-04-15 12:04] LABS: Basophils Absolute Auto 0.1 X10*3/uL (0.0-0.2); Eosinophils Absolute Auto 0.2 X10*3/uL (0.0-0.4); Eosinophils Percent Auto 3.2 % (0-4); Hematocrit 43.8 % (42.0-52.0); Hemoglobin 15.1 g/dl (14.0-18.0); Imm Gran Abs Auto 0.05 X10*3/uL (0.00-0.03); Imm Gran Pct Auto 0.7 % (0.0-0.4); Lymphocytes Absolute Auto 2.3 X10*3/uL (1.2-4.9); Lymphocytes Percent Auto 33.8 % (20-40); Mean Corpuscular HGB Conc 34.5 g/dl (31.0-36.0); Mean Corpuscular Hemoglobin 29.1 pg (27.0-33.0); Mean Corpuscular Volume 84.4 fL (80.0-98.0); Monocytes Absolute Auto 0.4 X10*3/uL (0.1-1.2); Monocytes Percent Auto 6.4 % (2-11); Neutrophils Absolute Auto 3.8 x10*3/uL (2.0-8.3); Neutrophils Percent Auto 54.9 % (45-73); Platelet Count 236 X10*3/uL (160-400); Red Blood Count 5.19 X10*6/uL (4.60-5.80); Red Cell Distribution Width 12.4 % (11.0-16.0); White Blood Count 6.9 X10*3/uL (4.8-10.8)
[2024-04-15 12:22] LABS: Appearance Urine Clear; Color Urine Yellow; Glucose Urine UA Negative (Negative); Leukocyte Esterase Urine Negative (Negative); Nitrite Urine Negative (Negative); PH 6.5 (5.0-9.0); Specific Gravity - Urine 1.015 (1.005-1.025); UMIC TRIGGER UA YES; Urine Blood Large (3+) (Negative); Urine Ketones Negative (Negative); Urine Protein 100 (2+) mg/dL (Neg-Trace)
[2024-04-15 12:28] LABS: Bacteria Urine None Seen (None Seen); Hyaline Casts Urine 0-2 /LPF (0-2); RBC Urine >20 /HPF (0-2); Squamous Epithelial Cell Urine 0-2 /HPF (0-2); WBC Urine 0-5 /HPF (0-5)
[2024-04-15 12:42] LABS: Anion Gap 13 (12-20); Blood Urea Nitrogen 15 mg/dL (9-16); Calcium 9.4 mg/dL (8.4-10.2); Carbon Dioxide 23 mmol/L (22-29); Chloride 106 mmol/L (96-108); Estimated Glomerular Filt Rate > 60; Glucose Random 91 mg/dL (60-115); Sodium 138 mmol/L (135-145); Uric Acid 4.9 mg/dL (3.4-7.0)
[2024-04-15 13:13] LABS: Creatinine Urine 103.73 mg/dL; Total Protein Urine Random 89 mg/dL (<12)
== END 2024-04-15 11:12 | disposition home or self-care (01) ==
LOC: HO.LAB 11:11
PROVIDERS: PCP Registered Nurse; Visit Provider Internal Medicine Hypertension Specialist
DX: R80.9 Proteinuria, unspecified (principal); M10.9 Gout, unspecified
CPT/HCPCS: 36415; 80048; 81001; 81003; 82570; 84156; 84550; 85025

== ENCOUNTER 2024-04-16 08:57 | Outpatient (AMB) | payer OTHER, SELFPAY ==
[2024-04-16 09:00] VITALS: BP 140/84; BMI 36.5
--- NOTE | 2024-04-16 09:00 | A.OFFVIS_ITS ---
Vital Signs 04/16/24 09:00 Height 5 ft 10 in Weight 254 lb 6.615 oz BMI 36.5 BP 140/84 H Blood Pressure Location Lt brachial Position Sitting Intake Visit Reasons: Martinez's ? lupus/LM Intake Note: Patient presents as a new patient externally referred by PCP, Hever Avendano CNP for possible Martinez's? or Lupus. Patient has been feeling this way for at least 2 years. Patient states he has recently had gout that had resolved. 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 Denies rashes, photosensitivity, alopecia, oral/nasal ulcers, sicca symptoms, lymphadenopathy, chest pain/shortness of breath, inflammatory type joint pain, foamy urine, lower extremity edema, muscle weakness, Raynaud's Also denies history of seizure, CVA, psychosis, history of kidney problems, history of cytopenias, history of VTE including PE or DVTs OB History: Never been He does report having a history of bleeding after surgeries. And he is currently being worked up for bleeding disorders. He is also complaining of pain and sometimes burning to the lateral aspect of his thighs. [facility] Medical History (Updated 04/16/24 @ 09:44 by Kenzie Fernandes MD) Meralgia paresthetica, bilateral lower limbs History of kidney stones Hypertension Family History Mother Heart disease Diabetes Maternal Grandfather Diabetes Heart disease Kidney disease Social History Alcohol intake: never Patient Tobacco Use Status: Never used Tobacco service: No Review of Systems Const Details: Review of Systems Constitutional: Denies fever, chills, weight loss ENT: Denies vision changes, eye pain or eye redness, dental caries, dry mouth GI: Denies nausea, vomiting, diarrhea, abdominal pain, change in BM Pulm: Denies SOB, KOWALSKI, hemoptysis, wheezing Cards: Denies chest pain, palpitations Skin: Denies Raynaud's, rash, nail changes, photosensitivity, LOW HEEL BUILDER: Denies headaches, weakness, paresthesias, recurrent falls MSK: as per HPI All other systems reviewed and are unremarkable except noted above Physical Exam Vital Signs: Last Vital Signs BP 140/84 H 04/16/24 09:00 BMI result Body Mass Index 36.5 Physical Examination CONSTITUITIONAL Patient alert and cooperative. Well appearing and in no apparent painful distress HEENT Conjunctiva and sclera clear. ?Pupils equal round and reactive to light. ?No lymphadenopathy. ?Normal dentition. No oral or nasal ulcers noted. No evidence of discoid rash to the ana of ears CHEST/RESPIRATORY SYSTEM Normal respiratory effort and able to speak in complete sentences. ?Clear to auscultation bilaterally. ?No crackles, rales, rhonchi, wheezes heard. CARDIAC SYSTEM Regular rate and rhythm. ?S1 and S2 heard no murmurs. ?Radial pulses intact liseth aterally MSK Hands: ?Good associate director career services strength bilaterally - 5/5. ?No deformities noted. ?No synovitis noted to the MCPs, PIPs or DIPs. ?No tenderness to palpation of these joints. Wrists: ?Full range of motion at the wrists without pain. ?No tenderness to palpation or synovitis noted to the wrists. Elbows: Full range of motion without pain. No tenderness, weakness, swelling, increased warmth or erythema. Shoulders: Full range of motion without pain. No tenderness, weakness, swelling, increased warmth or erythema. Hips: Full range of motion without pain. Hip bursa: No tenderness to palpation Knees: ?Full range of motion. ?No tenderness, swelling, increased warmth or erythema.?No effusion or crepitations Ankles: Full range of motion. ?No tenderness, swelling, increased warmth or erythema.? Feet: ?Negative squeeze test. ?No tenderness to palpation or swelling of the MTPs. Tender points:??No tenderness to palpation of the neck, shoulders, chest, elbow s, hips, buttocks or knees. SKIN Skin intact without rashes. Results Reviewed Results Reviewed: Laboratory Tests 07/05/23 03/19/24 04/15/24 12:00 10:40 11:31 WBC 6.9 RBC 5.19 Hgb 15.1 Hct 43.8 Plt Count 236 Sodium 138 Potassium 4.0 Chloride 106 Carbon Dioxide 23 BUN 15 Creatinine 0.77 Uric Acid 9.5 H 4.9 CONNOR Screen NEGATIVE Complement C3 155 Complement C4 33 Assessment & Plan Assessment & Plan (1) Gout: Code(s): M10.9 - Gout, unspecified Category: Medical Qualifiers: Gout site: toe Gout etiology: idiopathic Chronicity: chronic Laterality: unspecified laterality Presence of tophus: without tophus Qualified Code(s): M1A.0790 - Idiopathic chronic gout, unspecified ankle and foot, without tophus (tophi) Plan: #Non crystal proven non tophaceous gout Diagnosed based 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 Started on allopurinol by Nephrology. Uric acid responded well. Continue management by Nephrology (2) Meralgia paresthetica, bilateral lower limbs: Code(s): G57.13 - Meralgia paresthetica, bilateral lower limbs Category: Medical Plan: #Meralgia paresthetica Patient complain of symptoms consistent with meralgia paresthetica. Advised patient to follow up with primary and potentially order EMG. Plan #Concern for lupus At this time patient is CONNOR negative and has no other signs or symptoms concerning for lupus. No further workup. I spent 45 minutes reviewing the record and labs, seeing the patient, discussing the treatment plan and documenting in the medical record ? Coding Level of Care Code New Pt Level 4 (89940) Diagnoses Chronic idiopathic gout involving toe without tophus, unspecified laterality M1A.0790 Gout site: toe Gout etiology: idiopathic Chronicity: chronic Laterality: unspecified laterality Presence of tophus: without tophus Meralgia paresthetica, bilateral lower limbs G57.13
== END 2024-04-16 09:39 | disposition home or self-care (01) ==
LOC: HO.RHE 08:57
PROVIDERS: PCP Registered Nurse; Visit Provider Student in an Organized Health Care Education/Training Program
DX: M1A.0790 Idiopathic chronic gout, unspecified ankle and foot, without tophus (tophi) (principal); G57.13 Meralgia paresthetica, bilateral lower limbs
CPT/HCPCS: 99204

== ENCOUNTER 2024-06-02 11:22 | Outpatient (AMB) | payer OTHER, SELFPAY ==
[2024-06-02 11:30] VITALS: BP 124/86; PULSE 78; O2SAT 98; BMI 38.0
--- NOTE | 2024-06-02 11:30 | HO.NEPHOV ---
Vital Signs 06/02/24 11:30 Height 5 ft 10 in Weight 265 lb BMI 38.0 BP 124/86 Blood Pressure Location Lt brachial Position Sitting Pulse 78 Pulse Source Pulse Oximeter Pulse Oximetry (%) 98 Oxygen Delivery Method Room Air Intake Visit Reasons: Proteinuria Historiographer Required: No Accompanied by: Self / Same As Patient Allergies apple Allergy (Verified 06/02/24 11:31) Unknown pear Allergy (Verified 06/02/24 11:31) Unknown plum Allergy (Verified 06/02/24 11:31) Unknown Medication List - Last Reconciled 06/02/24 by Marlon Aguilera MD acetaminophen (Tylenol Extra Strength) 1,000 mg PO Q6H PRN allopurinol 300 mg PO DAILY cholecalciferol (vitamin D3) 25 mcg PO DAILY indomethacin 25 mg PO DAILY PRN lisinopril 20 mg PO DAILY oxycodone 5 mg PO Q4H PRN HPI Comments Details: Kam is 28-year-old , with no gender affirming genital surgery who was accompanied by his significant other at today's office visit. Referred for Hematuria He has had back pain and seen in ED Suspected to have kidney stone. No stones seen in [facility] Seen by Urology for hematuria Scheduled for a CT Urogram He has a history of hypertension since 2017; HE i son Lisinopril 5 mg QD He is on Testosterone. over the last 2 years to be having intermittent episodes of right-sided flank pain with episodes of dark urine. He reports having followed up with PCP and multiple hospital visits for this exact issue at which time bedside renal ultrasounds were performed noting no nephrolithiasis. When asked he denies smoking cigarettes/nicotine and or any known chemical exposure. However, does report smoking recreational marijuana daily. 01/01/2024. Currently on lisinopril 15 mg a day. Recently had COVID vaccination started developing dark brown urine. He has had this episode during previous vaccine administration as well. No other complaints today. 03/21/24 Developed gout Treated with short course of Prednisone Still in pain Uric acid 9.5 06/02/24 Kam missed the previous appointment last month since his partner had a fracture lower extremity. Had an episode of gout- responded to [place] HAs cough x 3 weeks- non productive [facility] Medical History (Updated 04/16/24 @ 09:44 by Kenzie Fernandes MD) Meralgia paresthetica, bilateral lower limbs History of kidney stones Hypertension Family History Mother Heart disease Diabetes Maternal Grandfather Diabetes Heart disease Kidney disease Social History Alcohol intake: never Patient Tobacco Use Status: Never used Tobacco service: No Physical Exam Vital Signs: Last Vital Signs Pulse 78 06/02/24 11:30 BP 124/86 06/02/24 11:30 Pulse Ox 98 06/02/24 11:30 Oxygen Delivery Method Room Air 06/02/24 11:30 BMI result Body Mass Index 38.0 Results Reviewed Nephrology Results: Hgb 15.1 g/dl (14.0-18.0) 04/15/24 WBC 6.9 X10*3/uL (4.8-10.8) 04/15/24 Plt Count 236 X10*3/uL (160-400) 04/15/24 Sodium 138 mmol/L (135-145) 04/15/24 Potassium 4.0 mmol/L (3.3-5.1) 04/15/24 Chloride 106 mmol/L (96-108) 04/15/24 Carbon Dioxide 23 mmol/L (22-29) 04/15/24 BUN 15 mg/dL (9-16) 04/15/24 Creatinine 0.77 mg/dL (0.5-1.4) 04/15/24 Calcium 9.4 mg/dL (8.4-10.2) 04/15/24 Urine Protein 100 (2+) mg/dL (Neg-Trace) H 04/15/24 Urine Creatinine 103.73 mg/dL 04/15/24 Assessment & Plan Assessment & Plan (1) Proteinuria: Code(s): R80.9 - Proteinuria, unspecified Category: Medical (2) Gross hematuria: Code(s): R31.0 - Gross hematuria Category: Medical Plan Kam is 28 yr old with hematuria nd protienuria and normal renal function No urological causes have been established He has uricoseuria. Renal sonogram was unremarkable Kidney biopsy revealed IgA nephropathy and 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 First step is to maximize ANALISA inhibitors. Since he has developed cough with lisinopril I will switch to valsartan 160 mg daily and titrate dose as needed. Next would be to add SGLT2 inhibitors. Monitor urine protein excretion. We will hold off on further immunosuppression based on urinary protein excretion and clinical course. Encouraged to maintain blood pressure less than 130/80 He will benefit from weight loss as well. Referred to weight loss clinic No absolutely contraindication for using Wegovy Gout. Discussed low purine diet Keep allopurinol 300 mg a day. Orders: Orders Basic Metabolic Panel Today R80.9 - Proteinuria, unspecified Total Protein Urine Random Today R80.9 - Proteinuria, unspecified UA and rflx microscopic Today R80.9 - Proteinuria, unspecified Creatinine Urine Today R80.9 - Proteinuria, unspecified Medications: New valsartan 160 mg PO DAILY 90 tabs 0RF Discontinued lisinopril Discontinued Reason: None 20 mg PO DAILY 90 tabs 1RF Coding Level of Care Code Est Pt Level 4 (96064) Diagnoses Proteinuria R80.9 Gross hematuria R31.0
== END 2024-06-02 11:46 | disposition home or self-care (01) ==
PROVIDERS: PCP Registered Nurse; Visit Provider Internal Medicine Hypertension Specialist
DX: R80.9 Proteinuria, unspecified (principal); R31.0 Gross hematuria
CPT/HCPCS: 99214

== ENCOUNTER → 2024-06-02 11:22 | Outpatient (BNVA) | payer OTHER, SELFPAY | PROVIDERS: PCP Registered Nurse; Visit Provider Internal Medicine Hypertension Specialist ==

== ENCOUNTER 2024-06-02 11:48 | Outpatient (REF) | payer OTHER, SELFPAY ==
[2024-06-02 13:51] LABS: Appearance Urine Clear; Color Urine Yellow; Glucose Urine UA Negative (Negative); Leukocyte Esterase Urine Negative (Negative); Nitrite Urine Negative (Negative); PH 5.5 (5.0-9.0); UMIC TRIGGER UA YES; Urine Blood Large (3+) (Negative); Urine Ketones Negative (Negative); Urine Protein 300 (3+) mg/dL (Neg-Trace)
[2024-06-02 14:10] LABS: Anion Gap 12 (12-20); Blood Urea Nitrogen 13 mg/dL (9-16); Carbon Dioxide 23 mmol/L (22-29); Chloride 108 mmol/L (96-108); Creatinine Urine 115.22 mg/dL; Estimated Glomerular Filt Rate > 60; Glucose Random 101 mg/dL (60-115); Sodium 139 mmol/L (135-145); Total Protein Urine Random 171 mg/dL (<12)
[2024-06-02 15:03] LABS: Bacteria Urine None Seen (None Seen); Hyaline Casts Urine 0-2 /LPF (0-2); Squamous Epithelial Cell Urine 0-2 /HPF (0-2); WBC Urine 0-5 /HPF (0-5)
== END 2024-06-02 11:49 | disposition home or self-care (01) ==
LOC: HO.10HDL 11:48
PROVIDERS: Visit Provider Internal Medicine Hypertension Specialist
DX: R80.9 Proteinuria, unspecified (principal)
CPT/HCPCS: 36415; 80048; 81001; 81003; 82570; 84156

== ENCOUNTER 2024-07-10 09:36 | Outpatient (AMB) | payer OTHER, SELFPAY ==
[2024-07-10 09:39] VITALS: BP 140/88; PULSE 72; O2SAT 97
--- NOTE | 2024-07-10 09:39 | HO.NEPHOV ---
Vital Signs 07/10/24 09:39 07/10/24 10:02 Height 5 ft 10 in BP 140/88 H 130/80 Blood Pressure Location Lt brachial Lt brachial Position Sitting Sitting Pulse 72 Pulse Source Pulse Oximeter Pulse Oximetry (%) 97 Oxygen Delivery Method Room Air Intake Visit Reasons: Proteinuria/ LVM Optometry Doctor Required: No Accompanied by: Self / Same As Patient Allergies apple Allergy (Verified 07/10/24 09:40) Unknown pear Allergy (Verified 07/10/24 09:40) Unknown plum Allergy (Verified 07/10/24 09:40) Unknown Medication List - Last Reconciled 07/10/24 by Marlon Aguilera MD acetaminophen (Tylenol Extra Strength) 1,000 mg PO Q6H PRN allopurinol 300 mg PO DAILY cholecalciferol (vitamin D3) 25 mcg PO DAILY indomethacin 25 mg PO DAILY PRN oxycodone 5 mg PO Q4H PRN valsartan 160 mg PO DAILY HPI Comments Details: Kam is 28-year-old , with no gender affirming genital surgery who was accompanied by his significant other at today's office visit. Referred for Hematuria He has had back pain and seen in ED Suspected to have kidney stone. No stones seen in [facility] Seen by Urology for hematuria Scheduled for a CT Urogram He has a history of hypertension since 2017; HE i son Lisinopril 5 mg QD He is on Testosterone. over the last 2 years to be having intermittent episodes of right-sided flank pain with episodes of dark urine. He reports having followed up with PCP and multiple hospital visits for this exact issue at which time bedside renal ultrasounds were performed noting no nephrolithiasis. When asked he denies smoking cigarettes/nicotine and or any known chemical exposure. However, does report smoking recreational marijuana daily. 01/01/2024. Currently on lisinopril 15 mg a day. Recently had COVID vaccination started developing dark brown urine. He has had this episode during previous vaccine administration as well. No other complaints today. 03/21/24 Developed gout Treated with short course of Prednisone Still in pain Uric acid 9.5 06/02/24 Kam missed the previous appointment last month since his partner had a fracture lower extremity. Had an episode of gout- responded to Colchicine HAs cough x 3 weeks- non productive 07/10/24 c/o Gout - right foot On Ondocin and ALlopurinol [facility] Medical History (Updated 07/10/24 @ 10:01 by Marlon Aguilera MD) Meralgia paresthetica, bilateral lower limbs History of kidney stones Hypertension Family History Mother Heart disease Diabetes Maternal Grandfather Diabetes Heart disease Kidney disease Social History Alcohol intake: never Patient Tobacco Use Status: Never used Tobacco service: No Physical Exam Vital Signs: Last Vital Signs Pulse 72 07/10/24 09:39 BP 130/80 07/10/24 10:02 Pulse Ox 97 07/10/24 09:39 Oxygen Delivery Method Room Air 07/10/24 09:39 Const General: comfortable; No acute distress Orientation/consciousness: patient oriented x3 Eyes General: appearance normal, both eyes and all related structures Visual Hood: normal visual hood by confrontation Neck Neck: Yes supple and Yes no JVD Resp Effort & Inspection: normal respiratory effort and respiratory effort not decreased Auscultation: rhonchi Cardio Palpation: no palpable S3 and no palpable S4 Heart sounds: no rubs GI Inspection: Yes normal to inspection Palpation (GI): Soft to palpation Percussion: Yes normal to percussion Auscultation: normal bowel sounds General: Yes no CVA tenderness Back/Spine/Pelvis Back: no CVA tenderness Skin General skin exam: no petechiae and no purpura Neuro General: patient oriented x3 and no focal motor deficits Extrem Other: Tenderness in the right 1st MTP joint General: No clubbing and No edema Results Reviewed Nephrology Results: Hgb 15.1 g/dl (14.0-18.0) 04/15/24 WBC 6.9 X10*3/uL (4.8-10.8) 04/15/24 Plt Count 236 X10*3/uL (160-400) 04/15/24 Sodium 139 mmol/L (135-145) 06/02/24 Potassium 4.0 mmol/L (3.3-5.1) 06/02/24 Chloride 108 mmol/L (96-108) 06/02/24 Carbon Dioxide 23 mmol/L (22-29) 06/02/24 BUN 13 mg/dL (9-16) 06/02/24 Creatinine 0.79 mg/dL (0.5-1.4) 06/02/24 Calcium 9.0 mg/dL (8.4-10.2) 06/02/24 Urine Protein 300 (3+) mg/dL (Neg-Trace) H 06/02/24 Urine Creatinine 115.22 mg/dL 06/02/24 Assessment & Plan Assessment & Plan (1) Proteinuria: Code(s): R80.9 - Proteinuria, unspecified Category: Medical (2) Gross hematuria: Code(s): R31.0 - Gross hematuria Category: Medical (3) IgA nephropathy: Code(s): 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 Renal sonogram was unremarkable Kidney biopsy revealed IgA nephropathy and 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 First step is to maximize ANALISA inhibitors. Since he has developed cough with lisinopril switched to valsartan 160 mg daily Increase to 320 mg daily ( 07/10/24) Next would be to add SGLT2 inhibitors. Monitor urine protein excretion. We will hold off on further immunosuppression until we maximize ANALISA inhibition and follow urinary protein excretion and clinical course. Encouraged to maintain blood pressure less than 130/80 He will benefit from weight loss as well. Referred to weight loss clinic No absolutely contraindication for using Wegovy Gout. Discussed low purine diet Keep Allopurinol 300 mg a day. Add a short course of Prednisone Needs Rhem follow up Orders: Orders Total Protein Urine Random 6 Weeks N02.B9 - Other recurrent and persistent immunoglobulin A nephropathy Basic Metabolic Panel 6 Weeks N02.B9 - Other recurrent and persistent immunoglobulin A nephropathy Uric Acid 6 Weeks N02.B9 - Other recurrent and persistent immunoglobulin A nephropathy Creatinine Urine 6 Weeks N02.B9 - Other recurrent and persistent immunoglobulin A nephropathy Referrals Rheumatology Referral M1A.789 - Idiopathic chronic gout, unspecified ankle and foot, without tophus (tophi) Medications: New prednisone 4 tabs for 2 days; 3 tabs for 2 days; 2 tabs for 2 days; 1 tab for 2 days 5 mg PO DIRECTED 30 tabs 0RF Acute Gout Changed From valsartan 160 mg PO DAILY 90 tabs 0RF To valsartan 320 mg PO DAILY 90 tabs 1RF Coding Level of Care Code Est Pt Level 4 (78564) Complex EM visit Add On G2211 Diagnoses Proteinuria R80.9 Gross hematuria R31.0 IgA nephropathy N02.B9 Chronic idiopathic gout 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
[2024-07-10 10:02] VITALS: BP 130/80
== END 2024-07-10 10:14 | disposition home or self-care (01) ==
PROVIDERS: PCP Registered Nurse; Visit Provider Internal Medicine Hypertension Specialist
DX: R80.9 Proteinuria, unspecified (principal); N02.B9 Other recurrent and persistent immunoglobulin A nephropathy; M1A.0790 Idiopathic chronic gout, unspecified ankle and foot, without tophus (tophi)
CPT/HCPCS: 99214; G2211

== ENCOUNTER 2024-08-19 11:05 | Outpatient (REF) | payer OTHER, SELFPAY ==
[2024-08-19 12:39] LABS: Creatinine Urine 101.64 mg/dL; Total Protein Urine Random 130 mg/dL (<12)
[2024-08-19 12:44] LABS: Anion Gap 13 (12-20); Blood Urea Nitrogen 15 mg/dL (9-16); Carbon Dioxide 22 mmol/L (22-29); Chloride 113 mmol/L (96-108); Estimated Glomerular Filt Rate > 60; Glucose Random 116 mg/dL (60-115); Potassium 3.7 mmol/L (3.3-5.1); Sodium 144 mmol/L (135-145); Uric Acid 5.6 mg/dL (3.4-7.0)
== END 2024-08-19 11:06 | disposition home or self-care (01) ==
LOC: HO.10HDL 11:05
PROVIDERS: Visit Provider Internal Medicine Hypertension Specialist
DX: N02.B9 Other recurrent and persistent immunoglobulin A nephropathy (principal)
CPT/HCPCS: 36415; 80048; 82570; 84156; 84550

== ENCOUNTER 2024-08-28 10:12 | Outpatient (AMB) | payer OTHER, SELFPAY ==
[2024-08-28 10:15] VITALS: BP 126/72; PULSE 79; O2SAT 98; BMI 37.9
--- NOTE | 2024-08-28 10:15 | HO.NEPHOV ---
Vital Signs 08/28/24 10:15 Height 5 ft 10 in Weight 264 lb BMI 37.9 BP 126/72 Blood Pressure Location Lt brachial Position Sitting Pulse 79 Pulse Source Pulse Oximeter Pulse Oximetry (%) 98 Oxygen Delivery Method Room Air Intake Visit Reasons: 4-6wks follow-up w/labs/ Conf Pediatric Neuropsychologist Required: No Accompanied by: Self / Same As Patient Allergies apple Allergy (Verified 08/28/24 10:16) Unknown pear Allergy (Verified 08/28/24 10:16) Unknown plum Allergy (Verified 08/28/24 10:16) Unknown Medication List - Last Reconciled 08/28/24 by Marlon Aguilera MD acetaminophen (Tylenol Extra Strength) 1,000 mg PO Q6H PRN allopurinol 300 mg PO DAILY cholecalciferol (vitamin D3) 25 mcg PO DAILY indomethacin 25 mg PO DAILY PRN oxycodone 5 mg PO Q4H PRN prednisone 5 mg PO DIRECTED valsartan 320 mg PO DAILY HPI Comments Details: Kam is 28-year-old , with no gender affirming genital surgery who was accompanied by his significant other at today's office visit. Referred for Hematuria He has had back pain and seen in ED Suspected to have kidney stone. No stones seen in [facility] Seen by Urology for hematuria Scheduled for a CT Urogram He has a history of hypertension since 2017; HE i son Lisinopril 5 mg QD He is on Testosterone. over the last 2 years to be having intermittent episodes of right-sided flank pain with episodes of dark urine. He reports having followed up with PCP and multiple hospital visits for this exact issue at which time bedside renal ultrasounds were performed noting no nephrolithiasis. When asked he denies smoking cigarettes/nicotine and or any known chemical exposure. However, does report smoking recreational marijuana daily. 01/01/2024. Currently on lisinopril 15 mg a day. Recently had COVID vaccination started developing dark brown urine. He has had this episode during previous vaccine administration as well. No other complaints today. 03/21/24 Developed gout ;Treated with short course of Prednisone ;Still in pain ;Uric acid 9.5 06/02/24 Kam missed the previous appointment last month since his partner had a fracture lower extremity. Had an episode of gout- responded to Colchicine ;Has cough x 3 weeks- non productive 07/10/24 c/o Gout - right foot ;On Indocin and ALlopurinol 08/28/24 : Overall doing well. No new issues. [facility] Medical History (Updated 07/10/24 @ 10:01 by Marlon Aguilera MD) Meralgia paresthetica, bilateral lower limbs History of kidney stones Hypertension Family History Mother Heart disease Diabetes Maternal Grandfather Diabetes Heart disease Kidney disease Social History Alcohol intake: never Patient Tobacco Use Status: Never used Tobacco service: No Physical Exam Vital Signs: Last Vital Signs Pulse 79 08/28/24 10:15 BP 126/72 08/28/24 10:15 Pulse Ox 98 08/28/24 10:15 Oxygen Delivery Method Room Air 08/28/24 10:15 BMI result Body Mass Index 37.9 Comfortable Neck supple no JVD. Lungs entry equal no rales. Heart S1-S2 heard no gallop or rub. Abdomen soft nontender. Neuro alert awake oriented. No asterixis. Extremities no edema. Results Reviewed Nephrology Results: Hgb 15.1 g/dl (14.0-18.0) 04/15/24 WBC 6.9 X10*3/uL (4.8-10.8) 04/15/24 Plt Count 236 X10*3/uL (160-400) 04/15/24 Sodium 144 mmol/L (135-145) 08/19/24 Potassium 3.7 mmol/L (3.3-5.1) 08/19/24 Chloride 113 mmol/L (96-108) H 08/19/24 Carbon Dioxide 22 mmol/L (22-29) 08/19/24 BUN 15 mg/dL (9-16) 08/19/24 Creatinine 0.80 mg/dL (0.5-1.4) 08/19/24 Calcium 9.0 mg/dL (8.4-10.2) 08/19/24 Urine Protein 300 (3+) mg/dL (Neg-Trace) H 06/02/24 Urine Creatinine 101.64 mg/dL 08/19/24 Assessment & Plan Assessment & Plan (1) Proteinuria: Code(s): R80.9 - Proteinuria, unspecified Category: Medical (2) Gross hematuria: Code(s): R31.0 - Gross hematuria Category: Medical (3) IgA nephropathy: Code(s): N02.B9 - Other recurrent and persistent immunoglobulin A nephropathy Category: Medical (4) Gout: Code(s): M10.9 - Gout, unspecified Category: Medical Qualifiers: Chronicity: chronic Gout etiology: idiopathic Gout site: toe Laterality: unspecified laterality Presence of tophus: without tophus Qualified Code(s): M1A.0790 - Idiopathic chronic gout, unspecified ankle and foot, without tophus (tophi) Carlos Humphrey is 29 yrs old , with hematuria and protienuria and normal renal function Renal sonogram was unremarkable Kidney biopsy revealed IgA nephropathy and 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 First step is to maximize ANALISA inhibitors. Since he has developed cough with lisinopril switched to valsartan 160 mg daily Increase to 320 mg daily ( 07/10/24) Next would be to add SGLT2 inhibitors. Started Farxiga 5 mg daily and titrate dose. Monitor urine protein excretion. -- decreased from 1.48 in May 2024 to 1.2 in August 2024 We will hold off on further immunosuppression until we maximize ANALISA inhibition and follow urinary protein excretion and clinical course. Encouraged to maintain blood pressure less than 130/80 He will benefit from weight loss as well. Referred to weight loss clinic No absolutely contraindication for using Wegovy Gout. Discussed low purine diet Keep Allopurinol 300 mg a day. Add a short course of Prednisone Needs Rhem follow up Orders: Orders Total Protein Urine Random 3 Months N02.B9 - Other recurrent and persistent immunoglobulin A nephropathy, R80.9 - Proteinuria, unspecified Creatinine Urine 3 Months N02.B9 - Other recurrent and persistent immunoglobulin A nephropathy, R80.9 - Proteinuria, unspecified Complete Blood Count no Diff 3 Months N02.B9 - Other recurrent and persistent immunoglobulin A nephropathy, R80.9 - Proteinuria, unspecified Basic Metabolic Panel 3 Months N02.B9 - Other recurrent and persistent immunoglobulin A nephropathy, R80.9 - Proteinuria, unspecified UA and rflx microscopic 3 Months N02.B9 - Other recurrent and persistent immunoglobulin A nephropathy, R80.9 - Proteinuria, unspecified Medications: New dapagliflozin propanediol (Farxiga) 5 mg PO DAILY 30 tabs 1RF Coding Level of Care Code Est Pt Level 5 (58006) Diagnoses Proteinuria R80.9 Gross hematuria R31.0 IgA nephropathy N02.B9 Chronic idiopathic gout involving toe without tophus, unspecified laterality M1A.0790 Chronicity: chronic Gout etiology: idiopathic Gout site: toe Laterality: unspecified laterality Presence of tophus: without tophus
== END 2024-08-28 10:32 | disposition home or self-care (01) ==
LOC: HO.HKA 10:13
PROVIDERS: PCP Registered Nurse; Visit Provider Internal Medicine Hypertension Specialist
DX: R80.9 Proteinuria, unspecified (principal); N02.B9 Other recurrent and persistent immunoglobulin A nephropathy; M1A.0710 Idiopathic chronic gout, right ankle and foot, without tophus (tophi)
CPT/HCPCS: 99215

== ENCOUNTER 2025-02-23 14:03 | Outpatient (REF) | payer OTHER, SELFPAY ==
[2025-02-23 15:24] LABS: Hematocrit 40.0 % (42.0-52.0); Hemoglobin 14.1 g/dl (14.0-18.0); Mean Corpuscular HGB Conc 35.3 g/dl (31.0-36.0); Mean Corpuscular Hemoglobin 29.9 pg (27.0-33.0); Mean Corpuscular Volume 84.9 fL (80.0-98.0); NRBC Abs Auto 0.000 X10*3/uL (0.0-0.012); NRBC Pct Auto 0.0 /100WBC (0.0-0.2); Platelet Count 216 X10*3/uL (160-400); Red Blood Count 4.71 X10*6/uL (4.60-5.80); White Blood Count 8.0 X10*3/uL (4.8-10.8)
[2025-02-23 15:31] LABS: Appearance Urine Clear; Glucose Urine UA 500 mg/dL (Negative); PH 5.5 (5.0-9.0); Specific Gravity - Urine 1.020 (1.005-1.025); UMIC TRIGGER UA YES
[2025-02-23 15:48] LABS: Anion Gap 13 (12-20); Blood Urea Nitrogen 19 mg/dL (9-16); Calcium 9.0 mg/dL (8.4-10.2); Carbon Dioxide 23 mmol/L (22-29); Chloride 109 mmol/L (96-108); Estimated Glomerular Filt Rate > 60; Potassium 3.8 mmol/L (3.3-5.1); Sodium 141 mmol/L (135-145)
[2025-02-23 16:42] LABS: Total Protein Urine Random 188 mg/dL (<12)
--- OUTSIDE RECORDS SUMMARY | 2025-02-23 19:24 | XMS_ITS | Encounter Summary ---
Author Organization [facility] Address [address] [place] [address] Phone Care Team Providers Care Reagent Tender Helper Name Role Phone Patricia MikeP Unavailable Ivette Rosa [facility] Primary Care Provider [phone] Hever Avendano [facility] Primary Care Provider [phone] Ivette Rosa [facility] Primary Care Provider [phone] Hever Avendano [facility] Primary Care Provider [phone] Encounter Details Date Type Department Care Team (Late st Contact Info) Description 02/12/2020 Transcribe Orders [facility] Audiology [address] [address] Patricia Fry MD [address] [place] [address] Conductive hearing loss, bilateral (Primary Dx) Social History Tobacco Use Types Packs/Day Years Used Date Smoking Tobacco: Never Assessed Comments Unknown Sex and Gender Information Value Date Recorded Sex Assigned at Female 01/22/2022 12:38 PM EDT Legal Sex Male 1:10 PM EDT Gender Identity Non-binary 01/22/2022 12:38 PM EDT Sexual Orientation Choose not to disclose 2022 7:30 PM EST documented as of this encounter Plan of Treatment Not on file documented as of this encounter Visit Diagnoses Diagnosis Conductive hearing loss, bilateral- Primary documented in this encounter Care Teams Reagent Tender Helper Relationship Specialty Start Date End Date Ivette Rosa CNP [address] [place] [address] PCP - General 04/12/22 07/10/22 Hever Avendano CNP [address] [place] [address] PCP - General Family Medicine 07/11/22 07/26/22 Ivette Rosa CNP [address] [place] [id number] PCP - General 07/27/22 08/13/22 Hever Avendano CNP [address] [place] [address] PCP - General Family Medicine 08/14/22 Patricia Mike FNP [address] [place] [id number] Family Medicine 09/29/21 04/11/22 [employer] Assigned Provider 07/27/22 documented as of this encounter Additional Source Comments The information contained in this document represents components of the legal health record. It is not the complete legal health record.[facility]
--- OUTSIDE RECORDS SUMMARY | 2025-02-23 19:24 | XMS_ITS | Encounter Summary ---
Author Organization [facility] Address [address] [place] [address] [place] [address] Phone Care Team Providers Care First Responder Name Role Phone Hever Avendano [facility] Primary Care Provider [phone] Ivette Rosa [facility] Primary Care Provider [phone] Hever Avendano [facility] Primary Care Provider [phone] Encounter Details Date Type Department Care Team (Late st Contact Info) Description 07/13/2022 Procedure Pass [facility], Ct Scan - [address] [address] Social History Tobacco Use Types Packs/Day Years Used Date Smoking Tobacco: Never Smokeless Tobacco: Never Alcohol Use Standard Drinks/Week Comments Never 0 (1 standard drink = 0.6 oz pur e alcohol) Child or Family Care Answer Date Record ed Do you have problems with on e of the following making it difficult for you to work, study, or receive health care? No 04/11/2022 Education Answer Date Recorded Are you interested in help w ith more adult education (for example, completing high school, GED, job training, learning the Armenian language, technical skills, or developing parenting skills)? No 04/11/2022 Are you concerned about learning? Not on file 04/11/2022 No 04/11/2022 Yes 04/11/2022 Food Answer Date Recorded Within the past 6 months we worried whether our food would run out before we got money to buy more. Never True 04/11/2022 Within the past 6 months the food we bought just didn't last and we didn't have enough money to get more. Never True Residential Stability Answer Date Recor ded What is your housing situation today? I have murali fernando 04/11/2022 How many times have you move d in the past 12 months? Zero (I did not move) 04/11/2022 Paying for Meds Answer Date Recorded Do you have trouble paying for medicines? No 04/11/2022 Paying Utility Bills Answer Date Record ed Do you have trouble paying your heating or elect ricity bill? No 04/11/2022 Transportation Answer Date Recorded Has the lack of transportati on kept you from medical appointments or from getting medications? No 04/11/2022 Unemployment Answer Date Recorded Are you currently unemployed or working on a part-time or temporary basis, and looking for work? No 04/11/2022 Comments Unknown Sex and Gender Information Value Date Recorded Sex Assigned at Female 01/22/2022 12:38 PM EDT Legal Sex Male 1:10 PM EDT Gender Identity Non-binary 01/22/2022 12:38 PM EDT Sexual Orientation Choose not to disclose 2022 7:30 PM EST documented as of this encounter Plan of Treatment Not on file documented as of this encounter Visit Diagnoses Not on filedocumented in this encounter Additional Health Concerns Assessment Noted Time PHQ-2 Depression Total Score: 1 07/12/19 23 8:00 PM EST documented as of this encounter Care Teams First Responder Relationship Specialty Start Date End Date Hever Avendano CNP [address] [place] [address] PCP - General Family Medicine 07/11/22 07/26/22 Ivette Rosa CNP [address] [place] [id number] PCP - General 07/27/22 08/13/22 Hever Avenadno CNP [address] [place] [address] [email or web address] PCP - General Family Medicine 08/14/22 [employer] Assigned Provider 07/27/22 documented as of this encounter Additional Source Comments The information contained in this document represents components of the legal health record. It is not the complete legal health record.[facility]
--- OUTSIDE RECORDS SUMMARY | 2025-02-23 19:24 | XMS_ITS | Clinical Summary ---
Author Organization [facility] Address [address] [facility] [address] [place] [address] Phone Care Team Providers Care Asphalt Raker Name Role Phone Hever Avendano [facility] Primary Care Provider [phone] Allergies Active Allergy Reactions Criticality Noted Date Comments Apple 04/11/2022 Pear 04/11/2022 [place] 04/11/2022 Medications ibuprofen (ADVIL,MOTRIN) 600 MG tablet Take 600 mg by mouth every 6 (six) hours as needed for pain (specific location in comments). Active valsartan (DIOVAN) 160 MG tablet Take 160 mg by mouth daily. Active testosterone cypionate (DEPO-TESTOTERO NE) 200 mg/mL injection Inject 300 mg into the muscle once a week. Active colchicine (COLCRYS) 0.6 mg tabletIndicatio ns:Pain of great toe, left Day 1: Take 2 tablets (1.2 mg total) followed by 1 tablet (0.6 mg) in 1 hour. Starting on Day 2: take 1 tablet (0.6 mg) twice daily until gout flare resolves 20 tablet 06/18/2024 Active allopurinol (ZYLOPRIM) 300 MG tablet Take 300 mg by mouth daily. 06/16/2024 Active Active Problems Problem Noted Date Diagnosed Date BMI 39.0-39.9,adult 06/18/2024 Assessment & Plan (06/18/2024 12:34 PM EST): Would benefit from focusing on weight loss to help with BP/kidney disease. Referral entered to weight management. Advised could also check in with insurance company to see what agents are covered and/or look into online programs. Will send update via portal. Continue focusing on minimizing sugars/carbohydrates and regular aerobic exercise. 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 Also on allopurinol Assessment & Plan (03/19/2024 1:07 PM EDT): Concern for gout based on presentation. No wounds or signs of cellulitis, no fevers. No injury. X-ray done in ED. Is concerned for underlying bone cancer. Advised will work-up for gout first and if no improvement can do MRI of foot. Called [facility] and labs that were done were uric acid/BMP- ordered by nephrology. CBC/ESR/CRP ordered today. Offered another course of prednisone but prefers to wait and see what nephrology has to say on Sunday. Is in significant pain, will give a short course of Oxycodone 5 mg to take every 4-6 hours as needed. PDMP verified. Advised no driving/ETOH use. May not help specifically if gout but can try. Ensure hydration/fiber to avoid constipation. 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 Peck Assessment & Plan (12/01/2023 3:23 PM EDT): Recently diagnosed by nephrology. Being managed by renal at [facility]. 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 Referral entered for [facility] Rheumatology Bleeding diathesis 11/30/2023 Assessment & Plan (01/23/2024 1:19 PM EDT): IMPRESSION: This is a 28-year-old adult with a concern for bleeding diathesis. DISCUSSION: I discussed overall impression, differential diagnosis and further management in this regard. Initial testing came back showing a normal CBCD. PT/INR/PTT are all mildly elevated. Factor V level was normal. Differential diagnoses include deficiency of prothrombin, fibrinogen, factor V or factor VIII or combined factor deficiencies. These are usually inherited in nature. Then there are several acquired reasons for example liver disease, acute DIC, vitamin K deficiency, anticoagulant therapy, acquired inhibitor of the above-mentioned factors. Patient will undergo appropriate laboratory evaluation in this regard. RECOMMENDATIONS: VWD panel LFTs Repeat coags Factor levels including prothrombin, fibrinogen, factor X Vitamin K level Follow-up in 4 to 5 weeks Thank you very much for allowing to participate in this patient's care Assessment & Plan (12/01/2023 3:17 PM EDT): Concerned as has had two surgeries and both times developed hematomas, one surgery required two transfusions afterwards. No blood in stool/gums, does occasionally get blood in urine. Will check clotting factors/CBC to ensure normal. Can consider referral to hematology once lab results return. Dark urine 05/02/2023 Assessment & Plan (05/02/2023 12:08 PM EST): Has since resolved. Urine with 3+ blood in ED and all other labs normal/normal work-up. Referral was sent to urology and patient awaiting call. Encourage to connect with their office and if no phone call/appointment by mid-next week to follow-up and can refer to urology in [place]. Continue with hydration, stopped Flomax today and advised this is ok due to resolution of symptoms. Aware to follow-up for any new symptoms, expresses understanding Asymptomatic microscopic hematuria 07/13/2022 Immunization due 07/13/2022 Impacted cerumen of both ears 07/13/2022 Assessment & Plan (07/13/2022 9:04 AM EST): Encourage to use OTC Debrox, advised to follow-up in office if no improvement, can do ear lavage Elevated blood sugar 07/05/2022 Assessment & Plan (07/13/2022 9:03 AM EST): A1C 5.8%. Encourage to limit sugars/carbohydrates and participate in regular aerobic exercise Assessment & Plan (07/05/2022 10:19 AM EST): Will check A1C today. Likely related to non-fasting with blood work. Emphasize benefit of healthy diet limiting sugars/carbohydrates and regular aerobic exercise Elevated liver enzymes 07/05/2022 Assessment & Plan (07/13/2022 9:04 AM EST): Recent liver US showed fatty liver. Will routinely monitor liver functions annually to ensure no change. Emphasize benefit of healthy diet/regular aerobic exercise and weight loss to assist in management Assessment & Plan (07/05/2022 10:20 AM EST): May be related to fatty liver, will repeat liver enzymes as well as hepatitis screening to ensure normal and follow-up with patient with results Numbness in both legs 07/05/2022 Assessment & Plan (07/13/2022 9:03 AM EST): ? Related to lower back. No red flag symptoms. See plan per flank pain as CT ordered Assessment & Plan (07/05/2022 10:21 AM EST): Ongoing x one year. No acute/red flag symptoms. May be related to lower back. Will schedule NPT to be sooner to discuss/complete full physical, may benefit from PT and/or physiatry referral Essential hypertension 07/05/2022 Assessment & Plan (06/18/2024 12:33 PM EST): Switched from Lisinopril to Diovan due to cough, BP at goal Assessment & Plan (12/01/2023 3:25 PM EDT): Lisinopril was increased to 10 mg daily by nephrology. RX refill sent Assessment & Plan (05/02/2023 12:08 PM EST): Requesting refill of Lisinopril, rx sent Assessment & Plan (07/13/2022 9:02 AM EST): BP at goal, continue medications as prescribed. Recent labs normal renal function. Emphasize benefit of DASH diet/regular aerobic exercise Assessment & Plan (07/05/2022 10:23 AM EST): BP at goal, advised goal of BP consistently <140/90. Continue with medications as prescribed. Would be beneficial for patient to monitor BP intermittently at home 2-3 x a week and keep log, agreeable. Plan for NPT sooner and can re-evaluate BP readings at that time. Emphasize benefit of DASH diet/regular aerobic exercise Obesity, Class II, BMI 35-39.9 04/11/2022 Resolved Problems Problem Noted Date Diagnosed Date Resolved Date Flank pain 07/13/2022 05/02/2023 Assessment & Plan (07/13/2022 9:07 AM EST): Right sided x 3-4 days and + blood in recent urine. Will check CT abdomen/pelvis to rule out kidney stone. Encourage oral hydration with 64 oz daily. Will follow-up with results. Aware to follow-up sooner for any new/worsening symptoms Immunizations Immunization Administration Dates Next Due COVID-19 (Pre-04/02) Moderna Vaccine, Bivalent 6mo+ 12/03/2022 COVID-19 (Pre-04/02) Pfizer Vaccine, Bivalent 12+ 05/19/2022 COVID-19 (Pre-04/02) Pfizer Vaccine, mRNA, PF 06/12/2021,10/21/2020,09/30/2020 COVID-19 Moderna Spikevax Vaccine 12+ 04/04/2024 COVID-19 Pfizer Comirnaty Vaccine 12+ 12/28/2023 ,04/23/2023 INFLUENZA, SPLIT VIRUS, TRIVALENT PF 04/04/2024 INFLUENZA, SPLIT VIRUS, TRIV ALENT W/ PRESERVATIVE IM 04/22/2016 Influenza Quadrivalent MDCK Preservative Free IM 05/19/2022,02/27/2021,03/28/2017 Influenza Quadrivalent Preservative Free IM 04/11 Influenza Quadrivalent w/ Preservative IM 2019,04/11/2019 Influenza, Unspecified Formulation 02/27/2021 Tdap 07/13/2022 Social History Tobacco Use Types Packs/Day Years Used Date Smoking Tobacco: Never Smokeless Tobacco: Never Tobacco Cessation:Counseling Given: Not Answered Alcohol Use Standard Drinks/Week Comments Never 0 (1 standard drink = 0.6 oz pur e alcohol) Child or Family Care Answer Date Record ed Do you have problems with on e of the following making it difficult for you to work, study, or receive health care? No 04/11/2022 Education Answer Date Recorded Are you interested in more education? Not on kojo e 04/11/2024 Are you concerned about learning? Not on file 04/11/2024 No 04/11/2024 No 04/11/2024 Food Answer Date Recorded Within the past [...] your housing situation today? I have murali sing 04/11/2022 How many times have you move [...] basis, and looking for work? No 04/11/2022 Digital Access Answer Date Recorded No 11/04/2022 No 11/04/2022 Reliable internet access at home? Not on file 11/04/2022 Device with a working camera? Not on file Intimate Partner Violence Answer Date R ecorded Are you denied basic needs s uch as food, clothing, or medical care? No 03/07/2024 In the past 12 months have y ou been in a relationship with a person who hurts, threatens, or tries to control you? No 03/07/2024 Are you denied basic needs s uch as food, clothing, or medical care? No 03/07/2024 In the past 12 months have y ou been in a relationship with a person who hurts, threatens, or tries to control you? No 03/07/2024 Comments Unknown Sex and Gender Information Value Date Recorded Sex Assigned at Female 01/22/2022 12:38 PM EDT Legal Sex Male 1:10 PM EDT Gender Identity Non-binary 01/22/2022 12:38 PM EDT Sexual Orientation Choose not to disclose 2022 7:30 PM EST Last Filed Vital Signs Vital Sign Reading Time Taken Comments Blood Pressure 126/70 06/18/2024 8:44 AM EST Pulse 82 06/18/2024 8:44 AM EST Temperature 36.1 C (97 F) 06/18/2024 8:44 AM EST Respiratory Rate 20 06/18/2024 8:44 AM EST Oxygen Saturation 97% 06/18/2024 8:44 AM EST Inhaled Oxygen Concentration - - Weight 120.2 kg (265 lb) 06/18/2024 8:44 AM EST Height 175.3 cm (5' 9 ) 06/18/2024 8:44 AM EST Body Mass Index 39.13 06/18/2024 8:44 AM EST Plan of Treatment Health Maintenance Due Date Last Done Comments HIV ONE-TIME SCREENING (18-65 YEARS) 2011 DEPRESSION SCREENING 07/12/2023 07/12/2022 CREATININE LEVEL 04/25/2024 04/25/2023, , 01/22/2022 POTASSIUM LEVEL 04/25/2024 04/25/2023, 06/12, 01/22/2022 BLOOD PRESSURE 12/16/2024 06/18/2024 INFLUENZA VACCINE (#1) 2025 , 04/23/2023, 05/19/2022, Additional history exists Adult Td,Tdap Booster 07/13/2032 07/13/2022 HEPATITIS C SCREENING Completed 07/05/2022 SMOKING STATUS SCREENING (Once After 26 Yrs) Completed 11/30/2023 COVID-19 VACCINE Completed 04/04/2024, , 04/23/2023, Additional history exists HEPATITIS A VACCINES Aged Out No long er eligible based on patient's age to complete this topic HIB VACCINES Aged Out No longer eligi ble based on patient's age to complete this topic MENINGOCOCCAL VACCINES (ACWY) Aged Out No longer eligible based on patient's age to complete this topic MENINGOCOCCAL VACCINES (B) Aged Out N o longer eligible based on patient's age to complete this topic PNEUMOCOCCAL VACCINES (0-49 years) Aged Out No longer eligible based on patient's age to complete this topic Medical Devices Not on file Procedures Procedure Name Priority Date/Time Associated Diagnosis Comments BASIC METABOLIC PANEL STAT 04/25/2023 7:55 PM EST HEPATITIS C ANTIBODY, QUALITATIVE Routine 07/05/2022 8:51 AM EST Elevated blood sugar Elevated liver enzymes Need for hepatitis C screening test from Last 3 Months or Most Recently Relevant to Health Maintenance Results * (ABNORMAL) Basic metabolic panel (04/25/2023 7:55 PM EST) SODIUM 139 133 - 146 mmol/L [facility] CHLORIDE 102 96 - 108 mmol/L [facility] POTASSIUM 3.9 3.3 - 5.1 mmol/L [facility] CO2 25 21 - 35 mmol/L [facility] BUN 12 6 - 19 mg/dL [facility] CREATININE 0.80 0.5 - 1.5 mg/dL [facility] GLUCOSE 115(H) 70 - 99 mg/dL [facility] CALCIUM 8.7 8.4 - 10.3 mg/dL [facility] EGFR >120 >59 mL/min/1.7 3m2 [facility] Comment:Estimated glomerular filtration rate calculated using the CKD-EPI refit equation. ANION GAP 16 10 - 20 mmol/L [facility] Blood 04/25/2023 7:55 PM EST 04/25/2023 8:02 PM EST us Alphonso Avelar MD LAB BLOOD ORDERABLES Final Result [address] [id number] * Hepatitis C antibody, qualitative (07/05/2022 8:51 AM EST) HCV NON-REACTIV E NON-REACTI VE [facility] Blood 07/05/2022 8:51 AM EST 07/05/2022 8:58 AM EST us Hever Avendano [facility] LAB BLOOD ORDERABLES Final Result [address] [id number] from Last 3 Months or Most Recently Relevant to Health Maintenance Insurance [facility] POS EPO [facility] POS EPO [facility] POS EPO [facility] POS EPO [facility] POS EPO [facility] POS [facility]PO [facility] POS EPO [facility] POS EPO [facility] POS EPO [facility] POS EPO Care Teams Asphalt Raker Relationship Specialty Start Date End Date Hever Avendano CNP [address] [place] [address] [place] [address] [email or web address] PCP - General Family Medicine 08/14/22 Floyd Le Insurance Assigned Provider 07/27/22 Additional Source Comments The information contained in this document represents components of the legal health record. It is not the complete legal health record.[facility]
--- OUTSIDE RECORDS SUMMARY | 2025-02-23 19:24 | XMS_ITS | Encounter Summary ---
Author Organization [facility] Address [address] [place] [address] [place] [phone] Phone Care Team Providers Care Mailroom Coordinator Name Role Phone Patricia Mike WINDER CONTORT OPERATOR Unavailable Ivette Rosa [facility] Primary Care Provider [phone] Hever Avendano [facility] Primary Care Provider +- [phone] Ivette Rosa [facility] Primary Care Provider [phone] Hever Avendano [facility] Primary Care Provider +- [phone] Encounter Details Date Type Department Care Team (Late st Contact Info) Description 01/22/2022 Procedure Pass [facility], Ct Scan - [address] [address] Social History Tobacco Use Types Packs/Day Years Used Date Smoking Tobacco: Never Smokeless Tobacco: Never Alcohol Use Standard Drinks/Week Comments Never 0 (1 standard drink = 0.6 oz pur e alcohol) Comments Unknown Sex and Gender Information Value Date Recorded Sex Assigned at Female 01/22/2022 12:38 PM EDT Legal Sex Male 1:10 PM EDT Gender Identity Non-binary 01/22/2022 12:38 PM EDT Sexual Orientation Choose not to disclose 2022 7:30 PM EST documented as of this encounter Functional Status * Calculated C-SSRS Risk Score (Lifetime/Recent) Answer Date of Assessment Author No Risk Indicated 01/22/2022 12:38 PM EDT Lucero Dong RN * [place] Suicide Severity Rating Scale (Screener/Recent Self-Report) Question Answer Date of Assessment Author 1. Wish to be (Past 1 Month) No 022 12:38 PM EDT Lucero Dong RN 2. Non-Specific Active Suici james Thoughts (Past 1 Month) No 01/22/2022 12:38 PM EDT Lucero Dong RN 6. Suicidal Behavior (Lifetime) No 12:38 PM EDT Lucero Dong RN documented as of this encounter Plan of Treatment Not on file documented as of this encounter Visit Diagnoses Not on filedocumented in this encounter Care Teams Mailroom Coordinator Relationship Specialty Start Date End Date Ievtte Rosa CNP [address] [place] [id number] PCP - General 04/12/22 07/10/22 Hever Avendano CNP [address] [place] [id number] [email or web address] PCP - General Family Medicine 07/11/22 07/26/22 Ivette Rosa CNP [address] [place] [id number] PCP - General 07/27/22 08/13/22 Hever Avendano CNP [address] [place] [id number] PCP - General Family Medicine 08/14/22 Patricia Mike FNP [address] [place] [phone] Family Medicine 09/29/21 04/11/22 Floyd Le Insurance Assigned Provider 2/16/23 documented as of this encounter Additional Source Comments The information contained in this document represents components of the legal health record. It is not the complete legal health record.[facility]
== END 2025-02-23 14:04 | disposition home or self-care (01) ==
LOC: HO.LAB 14:03
PROVIDERS: PCP Registered Nurse; Visit Provider Internal Medicine Hypertension Specialist
DX: N02.B9 Other recurrent and persistent immunoglobulin A nephropathy (principal); R80.9 Proteinuria, unspecified
CPT/HCPCS: 36415; 80048; 81001; 82570; 84156; 85027

== ENCOUNTER 2025-02-24 12:07 | Outpatient (AMB) | payer OTHER, SELFPAY ==
[2025-02-24 12:09] VITALS: BP 144/90; PULSE 72; O2SAT 98; BMI 37.3
--- NOTE | 2025-02-24 12:09 | HO.NEPHOV_ITS ---
Vital Signs 02/24/25 12:09 Height 5 ft 10 in Weight 260 lb BMI 37.3 BP 144/90 H Blood Pressure Location Lt brachial Position Sitting Pulse 72 Pulse Source Pulse Oximeter Pulse Oximetry (%) 98 Oxygen Delivery Method Room Air Intake Visit Reasons: R/S 11/20/2024 CONF Ict Support And Test Engineers Required: No Accompanied by: Self / Same As Patient Allergies apple Allergy (Verified 02/24/25 12:11) Unknown pear Allergy (Verified 02/24/25 12:11) Unknown plum Allergy (Verified 02/24/25 12:11) Unknown Medication List - Last Reconciled 02/24/25 by Marlon Aguilera MD acetaminophen (Tylenol Extra Strength) 1,000 mg PO Q6H PRN allopurinol 300 mg PO DAILY cholecalciferol (vitamin D3) 25 mcg PO DAILY dapagliflozin propanediol (Farxiga) 5 mg PO DAILY indomethacin 25 mg PO DAILY PRN oxycodone 5 mg PO Q4H PRN prednisone 5 mg PO DIRECTED valsartan 320 mg PO DAILY HPI Comments Details: Kam is 28-year-old , with no gender affirming genital surgery who was accompanied by his significant other at today's office visit. Referred for Hematuria He has had back pain and seen in ED Suspected to have kidney stone. No stones seen in [facility] Seen by Urology for hematuria Scheduled for a CT Urogram He has a history of hypertension since 2017; HE i son Lisinopril 5 mg QD He is on Testosterone. over the last 2 years to be having intermittent episodes of right-sided flank pain with episodes of dark urine. He reports having followed up with PCP and multiple hospital visits for this exact issue at which time bedside renal ultrasounds were performed noting no nephrolithiasis. When asked he denies smoking cigarettes/nicotine and or any known chemical exposure. However, does report smoking recreational marijuana daily. 01/01/2024. Currently on lisinopril 15 mg a day. Recently had COVID vaccination started developing dark brown urine. He has had this episode during previous vaccine administration as well. No other complaints today. 03/21/24 Developed gout ;Treated with short course of Prednisone ;Still in pain ;Uric acid 9.5 06/02/24 Kam missed the previous appointment last month since his partner had a fracture lower extremity. Had an episode of gout- responded to Colchicine ;Has cough x 3 weeks- non productive 07/10/24 ;c/o Gout - right foot ;On Indocin and ALlopurinol 08/28/24 : Overall doing well. No new issues. 02/24/25 The patient is a 29-year-old male presenting for follow-up regarding hypertension management and IgA/proteinuria monitoring. History of gout, currently controlled without regular indomethacin use. Hypertension managed with valsartan 320 mg, current BP 144/90 mmHg. Home BP monitoring advised. Proteinuria monitored quarterly, with emphasis on BP and weight control. Medical History: - Gout - Hypertension - Proteinuria Medications: - Valsartan 320 mg for hypertension - Allopurinol 300 mg for gout - Indomethacin as needed for gout flare-ups Social History: - Engages in regular exercise and is mindful of dietary intake, particularly carbohydrates. [facility] Medical History (Updated 07/10/24 @ 10:01 by Marlon Aguilera MD) Meralgia paresthetica, bilateral lower limbs History of kidney stones Hypertension Family History Mother Heart disease Diabetes Maternal Grandfather Diabetes Heart disease Kidney disease Social History Alcohol intake: never Patient Tobacco Use Status: Never used Tobacco service: No Physical Exam Vital Signs: BMI result Body Mass Index 37.3 Comfortable Neck supple no JVD. Lungs entry equal no rales. Heart S1-S2 heard no gallop or rub. Abdomen soft nontender. Neuro alert awake oriented. No asterixis. Extremities no edema. Results Reviewed Nephrology Results: Hgb, (14.0-18.0) 14.1 g/dl 02/23/25 WBC, (4.8-10.8) 8.0 X10*3/uL 02/23/25 Plt Count, (160-400) 216 X10*3/uL 02/23/25 Sodium, (135-145) 141 mmol/L 02/23/25 Potassium, (3.3-5.1) 3.8 mmol/L 02/23/25 Chloride, (96-108) 109 mmol/L H 02/23/25 Carbon Dioxide, (22-29) 23 mmol/L 02/23/25 BUN, (9-16) 19 mg/dL H 02/23/25 Creatinine, (0.5-1.4) 0.95 mg/dL 02/23/25 Calcium, (8.4-10.2) 9.0 mg/dL 02/23/25 Urine Protein, (Neg-Trace) 300 (3+) mg/dL H 02/23/25 Urine Creatinine 94.79 mg/dL 02/23/25 Renal US 09/05/23 Assessment & Plan Assessment & Plan (1) Proteinuria: Code(s): R80.9 - Proteinuria, unspecified Category: Medical (2) Gross hematuria: Code(s): R31.0 - Gross hematuria Category: Medical (3) IgA nephropathy: Code(s): 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.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 First step is to maximize ANALISA inhibitors. Since he has developed cough with lisinopril switched to valsartan 160 mg daily Increase to 320 mg daily ( 07/10/24) Next would be to add SGLT2 inhibitors. Started Farxiga 5 mg daily and titrate dose. Monitor urine protein excretion. -- decreased from 1.48 in May 2024 to 1.2 in August 2024 We will hold off on further immunosuppression until we maximize ANALISA inhibition and follow urinary protein excretion and clinical course. Encouraged to maintain blood pressure less than 130/80 He will benefit from weight loss as well. Referred to weight loss clinic No absolutely contraindication for using Wegovy Gout. Discussed low purine diet Keep Allopurinol 300 mg a day. Add a short course of Prednisone Needs Rhem follow up 02/24/25 1. IGA Nephropathy . Proteinuria of about 2 gm - Monitor urinary protein every three months. - Emphasize blood pressure and weight control. Maintain < 130/80 Maximize ARB 2. Gout - Continue allopurinol 300 mg daily. - Use indomethacin as needed for flare-ups. 3. Hypertension - Continue Valsartan 320 mg daily. - Monitor blood pressure at home and report readings. - Adjust treatment if BP remains above 140 mmHg. May need to add HCTZ 12.5 mg Orders: Orders Creatinine Urine 3 Months N02.B9 - Other recurrent and persistent immunoglobulin A nephropathy, R80.9 - Proteinuria, unspecified Total Protein Urine Random 3 Months N02.B9 - Other recurrent and persistent immunoglobulin A nephropathy, R80.9 - Proteinuria, unspecified UA and rflx microscopic 3 Months N02.B9 - Other recurrent and persistent immunoglobulin A nephropathy, R80.9 - Proteinuria, unspecified Medications: Discontinued indomethacin Discontinued Reason: Patient no longer taking 25 mg PO DAILY PRN 30 caps 1RF for gout pain prednisone 4 tabs for 2 days; 3 tabs for 2 days; 2 tabs for 2 days; 1 tab for 2 days Discontinued Reason: Patient no longer taking 5 mg PO DIRECTED 30 tabs 0RF Acute Gout Coding Level of Care Code Est Pt Level 4 (65014) Diagnoses Proteinuria R80.9 Gross hematuria R31.0 IgA nephropathy N02.B9 Chronic idiopathic gout involving toe without tophus, unspecified laterality M1A.0791 Chronicity: chronic Gout etiology: idiopathic Gout site: toe Laterality: unspecified laterality Presence of tophus: without tophus
--- OUTSIDE RECORDS SUMMARY | 2025-02-24 16:15 | XMS_ITS | Encounter Summary ---
Author Organization [facility] Address [address] [place] [address] [place] [address] Phone Care Team Providers Care Production Cost Estimator Name Role Phone Patricia Mike PRODUCT MANAGER E COMMERCE Unavailable Ivette Rosa [facility] Primary Care Provider [phone] Hever Avendano [facility] Primary Care Provider [phone]- [phone] Ivette Rosa [facility] Primary Care Provider [phone] Hever Avendano [facility] Primary Care Provider [phone]- [phone] Encounter Details Date Type Department Care Team (Late st Contact Info) Description 01/22/2022 Procedure Pass [facility], Ct Scan - [address] [address] Social History Tobacco Use Types Packs/Day Years [...] 12:38 PM EDT Lucero Dong RN * [place] Suicide Severity Rating Scale (Screener/Recent Self-Report) Question [...] on filedocumented in this encounter Care Teams Production Cost Estimator Relationship Specialty Start Date End Date Ivette Rosa CNP [address] [place] [id number] PCP - General 04/12/22 07/10/22 Hever Avendano CNP [address] [place] [email or web address] PCP - General Family Medicine 07/11/22 07/26/22 Ivette Rosa CNP [address] [place] [address] PCP - General 07/27/22 08/13/22 Hever Avendano CNP [address] [place] [address] PCP - General Family Medicine 08/14/22 Patricia Mike FNP [address] [place] [address] Family Medicine 09/29/21 04/11/22 Floyd Le Insurance Assigned Provider 2/16/23 documented as of this encounter Additional Source Comments The information contained in this document represents components of the legal health record. It is not the complete legal health record.[facility]
--- OUTSIDE RECORDS SUMMARY | 2025-02-24 16:15 | XMS_ITS | Encounter Summary ---
Author Organization [facility] Address [address] [place] [address] Phone Care Team Providers Care Card Room Manager Name Role Phone Hever Avendano [facility] Primary Care Provider [phone] Ivette Rosa [facility] Primary Care Provider [phone] Hever Avendano [facility] Primary Care Provider [phone] Encounter Details Date Type Department Care Team (Late st Contact Info) Description 07/13/2022 Procedure Pass [facility], Ct Scan - [address] [address] Social History Tobacco Use Types Packs/Day Years [...] high school, GED, job training, learning the Serbian language, technical skills, or developing parenting skills)? [...] documented as of this encounter Care Teams Card Room Manager Relationship Specialty Start Date End Date Hever Avendano CNP [address] [place] [address] PCP - General Family Medicine 07/11/22 07/26/22 Ivette Rosa CNP [address] [place] [address] PCP - General 07/27/22 08/13/22 Hever Avendano CNP [address] [place] [address] [email or web address] PCP - General Family Medicine 08/14/22 Floyd Le Insurance Assigned Provider 07/27/22 documented as of this encounter Additional Source Comments The information contained in this document represents components of the legal health record. It is not the complete legal health record.[facility]
--- OUTSIDE RECORDS SUMMARY | 2025-02-24 16:15 | XMS_ITS | Clinical Summary ---
Author Organization [facility] Address [address] [place] [address] Phone Care Team Providers Care Cnmt Name Role Phone Hever Avendano [facility] Primary Care Provider [phone] Allergies Active Allergy Reactions Criticality Noted Date Comments Apple 04/11/2022 Pear 04/11/2022 [place] 04/11/2022 Medications ibuprofen (ADVIL,MOTRIN) 600 MG tablet [...] improvement can do MRI of foot. Called [facility] and labs that were done were uric [...] by nephrology. Being managed by renal at [facility]. 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 Referral entered for [facility] Rheumatology Bleeding diathesis 11/30/2023 Assessment & Plan [...] follow-up and can refer to urology in [place]. Continue with hydration, stopped Flomax today and [...] EST) SODIUM 139 133 - 146 mmol/L [facility] CHLORIDE 102 96 - 108 mmol/L [facility] POTASSIUM 3.9 3.3 - 5.1 mmol/L [facility] CO2 25 21 - 35 mmol/L [facility] BUN 12 6 - 19 mg/dL [facility] CREATININE 0.80 0.5 - 1.5 mg/dL [facility] GLUCOSE 115(H) 70 - 99 mg/dL [facility] CALCIUM 8.7 8.4 - 10.3 mg/dL [facility] EGFR >120 >59 mL/min/1.7 3m2 [facility] Comment:Estimated glomerular filtration rate calculated using the CKD-EPI refit equation. ANION GAP 16 10 - 20 mmol/L [facility] Blood 04/25/2023 7:55 PM EST 04/25/2023 8:02 PM EST us Alphonso Avelar MD LAB BLOOD ORDERABLES Final Result [address] [address] * Hepatitis C antibody, qualitative (07/05/2022 8:51 AM EST) HCV NON-REACTIV E NON-REACTI VE [facility] Blood 07/05/2022 8:51 AM EST 07/05/2022 8:58 AM EST us Hever Avendano [facility] LAB BLOOD ORDERABLES Final Result [address] [address] from Last 3 Months or Most Recently Relevant to Health Maintenance Insurance [facility] POS EPO [facility] POS EPO [facility]PO [facility] POS EPO [facility] POS EPO [facility] EPO [facility] POS EPO [facility] EPO [facility] POS EPO [facility] POS EPO Care Teams Cnmt Relationship Specialty Start Date End Date Hever Avendano CNP [address] [place] [address] [place] [address] [email or web address] PCP - General Family Medicine 08/14/22 Floyd Le Insurance Assigned Provider 07/27/22 Additional Source Comments The information contained in this document represents components of the legal health record. It is not the complete legal health record.[facility]
--- OUTSIDE RECORDS SUMMARY | 2025-02-24 16:15 | XMS_ITS | Encounter Summary ---
Author Organization [facility] Address [address] [place] [address] Phone Care Team Providers Care Resource Conservationist Name Role Phone Patricia MikeP Unavailable Ivette Rosa [facility] Primary Care Provider [phone] Hever Avendano [facility] Primary Care Provider [phone] Ivette Rosa [facility] Primary Care Provider [phone] Hever Avendano [facility] Primary Care Provider [phone] Encounter Details Date Type Department Care Team (Late st Contact Info) Description 02/12/2020 Transcribe Orders [facility] Audiology [address] [address] Patricia Fry MD [address] [place] [address] Conductive hearing loss, bilateral (Primary Dx) Social [...] Primary documented in this encounter Care Teams Resource Conservationist Relationship Specialty Start Date End Date Ivette Rosa CNP [address] [place] [address] PCP - General 04/12/22 07/10/22 Hever Avendano CNP [address] [place] [address] PCP - General Family Medicine 07/11/22 07/26/22 Ivette Rosa CNP [address] [place] [address] PCP - General 07/27/22 08/13/22 Hever Avendano CNP [address] [place] [id number] [email or web address] PCP - General Family Medicine 08/14/22 Patricia Mike FNP [address] [place] [address] Family Medicine 09/29/21 04/11/22 Floyd Le Insurance Assigned Provider 07/27/22 documented as of this encounter Additional Source Comments The information contained in this document represents components of the legal health record. It is not the complete legal health record.[facility]
== END 2025-02-24 12:22 | disposition home or self-care (01) ==
LOC: HO.HKA 12:07
PROVIDERS: PCP Registered Nurse; Visit Provider Internal Medicine Hypertension Specialist
DX: R80.9 Proteinuria, unspecified (principal); R31.0 Gross hematuria; N02.B9 Other recurrent and persistent immunoglobulin A nephropathy; M1A.0790 Idiopathic chronic gout, unspecified ankle and foot, without tophus (tophi)
CPT/HCPCS: 99214